=== PATIENT | male | born 1935 | race Caucasian/White ===

== ENCOUNTER 2016-09-19 08:00 | Outpatient (CLI) | payer MEDICARE | END 2016-09-19 08:01 | disposition home or self-care (01) | DX: E78.5 Hyperlipidemia, unspecified (principal); I10 Essential (primary) hypertension; E87.1 Hypo-osmolality and hyponatremia ==

== ENCOUNTER 2017-08-31 08:00 | Outpatient (CLI) | payer MEDICARE ==
[2017-08-31 13:28] LABS: BASOPHILS % (AUTO) 0.5 %; EOSINOPHILS # (AUTO) 0.1 10^3/uL (0.0-0.7); EOSINOPHILS % (AUTO) 2.1 %; HGB - HEMOGLOBIN 15.8 g/dL (14.0-18.0); LYMPHOCYTES # (AUTO) 3.1 10^3/uL (1.5-3.5); LYMPHOCYTES % (AUTO) 43.6 %; MEAN CORPUSCULAR HEMOGLOBIN 33.1 pg (27.0-31.0); MEAN CORPUSCULAR HGB CONC 33.6 g/dL (32.0-36.0); MEAN CORPUSCULAR VOLUME 98.4 fL (80.0-94.0); MONOCYTES # (AUTO) 0.6 10^3/uL (0.0-1.0); MONOCYTES % (AUTO) 9.1 %; NEUTROPHILS # (AUTO) 3.2 10^3/uL (1.5-6.6); NEUTROPHILS % (AUTO) 44.7 %; PLT - PLATELET COUNT 179 10^3/uL (130-450); RED BLOOD COUNT 4.78 10^6/uL (4.70-6.10); RED CELL DISTRIBUTION WIDTH 12.9 % (12.0-15.0); WHITE BLOOD COUNT 7.1 x10^3/uL (4.8-10.8)
[2017-08-31 13:30] LABS: ALBUMIN 4.2 g/dL (3.2-5.5); ALBUMIN/GLOBULIN RATIO 1.2 (1.0-2.2); ALKALINE PHOSPHATASE 69 IU/L (42-121); ALT ALANINE AMINOTRANSFERASE 16 IU/L (10-60); AST ASPARTATE AMINOTRANSFERASE 22 IU/L (10-42); BILIRUBIN,TOTAL 0.9 mg/dL (0.2-1.0); BUN - BLOOD UREA NITROGEN 19 mg/dL (6-20); CALCIUM 9.3 mg/dL (8.5-10.3); CARBON DIOXIDE - CO2 27 mmol/L (21-32); CHLORIDE 102 mmol/L (101-111); CHOL/HDL RATIO 4.8 (<5.0); CHOLESTEROL 233 mg/dL; CREATININE 0.7 mg/dL (0.6-1.2); GFR - MDRD 107 (>89); GLUCOSE 105 mg/dL (70-100); HDL CHOLESTEROL 49 mg/dL; LDL CHOLESTEROL,CALCULATED 149 mg/dL; SODIUM 135 mmol/L (135-145); TOTAL PROTEIN 7.8 g/dL (6.7-8.2); VLDL CHOLESTEROL 35 mg/dL
== END 2017-08-31 08:01 ==
LOC: LAB.WCP 08:00
PROVIDERS: ATTEND Family Medicine
DX: Z12.5 Encounter for screening for malignant neoplasm of prostate (principal); I10 Essential (primary) hypertension; E78.5 Hyperlipidemia, unspecified
CPT/HCPCS: 36415; 80053; 80061; 85025; G0103; 83721; 84153

== ENCOUNTER 2018-10-25 07:53 | Outpatient (CLI) | payer MEDICARE ==
[2018-10-25 15:54] LABS: BASOPHILS % (AUTO) 0.6 %; EOSINOPHILS # (AUTO) 0.3 10^3/uL (0.0-0.7); EOSINOPHILS % (AUTO) 3.9 %; HGB - HEMOGLOBIN 15.7 g/dL (14.0-18.0); LYMPHOCYTES # (AUTO) 3.3 10^3/uL (1.5-3.5); LYMPHOCYTES % (AUTO) 48.8 %; MEAN CORPUSCULAR HEMOGLOBIN 32.4 pg (27.0-31.0); MEAN CORPUSCULAR VOLUME 98.3 fL (80.0-94.0); MEAN PLATELET VOLUME 8.2 fL (7.4-11.4); MONOCYTES # (AUTO) 0.7 10^3/uL (0.0-1.0); MONOCYTES % (AUTO) 9.8 %; NEUTROPHILS # (AUTO) 2.5 10^3/uL (1.5-6.6); NEUTROPHILS % (AUTO) 36.9 %; PLT - PLATELET COUNT 184 10^3/uL (130-450); RED BLOOD COUNT 4.84 10^6/uL (4.70-6.10); RED CELL DISTRIBUTION WIDTH 13.1 % (12.0-15.0); WHITE BLOOD COUNT 6.7 x10^3/uL (4.8-10.8)
[2018-10-25 16:01] LABS: ALBUMIN 4.2 g/dL (3.2-5.5); ALBUMIN/GLOBULIN RATIO 1.1 (1.0-2.2); ALKALINE PHOSPHATASE 66 IU/L (42-121); ALT ALANINE AMINOTRANSFERASE 24 IU/L (10-60); AST ASPARTATE AMINOTRANSFERASE 23 IU/L (10-42); BILIRUBIN,TOTAL 0.9 mg/dL (0.2-1.0); BUN - BLOOD UREA NITROGEN 19 mg/dL (6-20); CALCIUM 9.1 mg/dL (8.5-10.3); CARBON DIOXIDE - CO2 26 mmol/L (21-32); CHLORIDE 102 mmol/L (101-111); CHOL/HDL RATIO 3.4 (<5.0); CHOLESTEROL 211 mg/dL; CREATININE 0.8 mg/dL (0.6-1.2); GFR - MDRD 92 (>89); GLUCOSE 106 mg/dL (70-100); HDL CHOLESTEROL 62 mg/dL; LDL CHOLESTEROL,CALCULATED 129 mg/dL; LDL/HDL RATIO 2.1 (<3.6); SODIUM 136 mmol/L (135-145); TOTAL PROTEIN 8.1 g/dL (6.7-8.2); VLDL CHOLESTEROL 20 mg/dL
== END 2018-10-25 07:54 | disposition home or self-care (01) ==
LOC: LAB.WCP 07:53
PROVIDERS: ATTEND Family Medicine
DX: E87.1 Hypo-osmolality and hyponatremia (principal); J44.9 Chronic obstructive pulmonary disease, unspecified; K21.9 Gastro-esophageal reflux disease without esophagitis; I10 Essential (primary) hypertension
CPT/HCPCS: 36415; 80053; 80061; 83721; 84443; 85025

== ENCOUNTER 2019-03-25 07:25 | Outpatient (CLI) | payer MEDICARE ==
[2019-03-25 12:53] LABS: BASOPHILS % (AUTO) 0.5 %; EOSINOPHILS # (AUTO) 0.1 10^3/uL (0.0-0.7); EOSINOPHILS % (AUTO) 1.9 %; HGB - HEMOGLOBIN 15.8 g/dL (14.0-18.0); LYMPHOCYTES # (AUTO) 3.3 10^3/uL (1.5-3.5); LYMPHOCYTES % (AUTO) 43.2 %; MEAN CORPUSCULAR HGB CONC 32.8 g/dL (32.0-36.0); MEAN CORPUSCULAR VOLUME 100.6 fL (80.0-94.0); MONOCYTES # (AUTO) 0.7 10^3/uL (0.0-1.0); NEUTROPHILS # (AUTO) 3.4 10^3/uL (1.5-6.6); NEUTROPHILS % (AUTO) 45.1 %; PLT - PLATELET COUNT 205 10^3/uL (130-450); RED BLOOD COUNT 4.79 10^6/uL (4.70-6.10); RED CELL DISTRIBUTION WIDTH 12.6 % (12.0-15.0); WHITE BLOOD COUNT 7.5 x10^3/uL (4.8-10.8)
[2019-03-25 13:17] LABS: ALBUMIN 4.1 g/dL (3.2-5.5); ALBUMIN/GLOBULIN RATIO 1.1 (1.0-2.2); BILIRUBIN,TOTAL 1.2 mg/dL (0.2-1.0); CALCIUM 9.5 mg/dL (8.5-10.3); CREATININE 0.8 mg/dL (0.6-1.2)
== END 2019-03-25 23:59 | disposition home or self-care (01) ==
LOC: LAB.WCP 07:25
PROVIDERS: ATTEND Family Medicine
DX: I10 Essential (primary) hypertension (principal); K21.9 Gastro-esophageal reflux disease without esophagitis
CPT/HCPCS: 36415; 80053; 85025

== ENCOUNTER 2019-11-02 11:25 | Outpatient (CLI) | payer MEDICARE ==
[2019-11-02 18:47] LABS: BASOPHILS # (AUTO) 0.1 10^3/uL (0.0-0.1); BASOPHILS % (AUTO) 0.6 %; EOSINOPHILS # (AUTO) 0.1 10^3/uL (0.0-0.7); EOSINOPHILS % (AUTO) 1.7 %; LYMPHOCYTES # (AUTO) 3.2 10^3/uL (1.5-3.5); MEAN CORPUSCULAR HEMOGLOBIN 32.9 pg (27.0-31.0); MEAN CORPUSCULAR HGB CONC 32.9 g/dL (32.0-36.0); MEAN CORPUSCULAR VOLUME 100.2 fL (80.0-94.0); MEAN PLATELET VOLUME 10.6 fL (7.4-11.4); MONOCYTES # (AUTO) 0.7 10^3/uL (0.0-1.0); MONOCYTES % (AUTO) 8.5 %; NEUTROPHILS # (AUTO) 4.1 10^3/uL (1.5-6.6); PLT - PLATELET COUNT 174 10^3/uL (130-450); RED BLOOD COUNT 4.86 10^6/uL (4.70-6.10); RED CELL DISTRIBUTION WIDTH 12.6 % (12.0-15.0); WHITE BLOOD COUNT 8.2 x10^3/uL (4.8-10.8)
[2019-11-02 19:01] LABS: ALBUMIN 4.3 g/dL (3.2-5.5); ALBUMIN/GLOBULIN RATIO 1.2 (1.0-2.2); ALKALINE PHOSPHATASE 69 IU/L (42-121); ALT ALANINE AMINOTRANSFERASE 22 IU/L (10-60); AST ASPARTATE AMINOTRANSFERASE 24 IU/L (10-42); BILIRUBIN,TOTAL 1.2 mg/dL (0.2-1.0); BUN - BLOOD UREA NITROGEN 25 mg/dL (6-20); CALCIUM 9.1 mg/dL (8.5-10.3); CARBON DIOXIDE - CO2 27 mmol/L (21-32); CHLORIDE 102 mmol/L (101-111); CHOL/HDL RATIO 3.4 (<5.0); CHOLESTEROL 227 mg/dL; CREATININE 0.8 mg/dL (0.6-1.2); GLUCOSE 92 mg/dL (70-100); HDL CHOLESTEROL 66 mg/dL; LDL CHOLESTEROL,CALCULATED 123 mg/dL; LDL/HDL RATIO 1.9 (<3.6); SODIUM 135 mmol/L (135-145); TOTAL PROTEIN 7.9 g/dL (6.7-8.2); VLDL CHOLESTEROL 38 mg/dL
== END 2019-11-02 23:59 | disposition home or self-care (01) ==
LOC: LAB.WCP 11:25
PROVIDERS: ATTEND Nurse Practitioner
DX: I10 Essential (primary) hypertension (principal); E78.5 Hyperlipidemia, unspecified
CPT/HCPCS: 36415; 80053; 80061; 83721; 84443; 85025

== ENCOUNTER 2020-02-17 07:52 | Emergency (ER) | payer MEDICARE ==
--- NOTE | 2020-02-17 08:21 | ED Physician Documentation ---
PD HPI ABD PAIN - Stated complaint Stated Complaint: ABD PAIN - Chief complaint Chief Complaint: Abd Pain - History obtained from History obtained from: Patient, Family - History of Present Illness Timing - onset: Enter time (0100), Last night Timing - duration: Hours Timing - details: Gradual onset, Still present Quality: Cramping, Sharp, Pain Location: Suprapubic Radiation: Lower back Improved by: Laying still Worsened by: Position, Palpation Associated symptoms: Nausea. No: Fever Similar symptoms before: Has not had sx before Recently seen: Not recently seen - Additional information Additional information: Previously well 84-year-old male presents to the emergency department this morning with lower abdominal pain. He states that last night when he went to bed he had a little bit of pain in this morning there is pain in the suprapubic area that is worsening and worsening. He recalls going to the bathroom did not have a problem voiding only voided a small amount. He denies any recent issue with voiding or decreased stream. He did have some slight nausea he has not had any nausea or vomiting and he has no other area of abdominal pain. He had stroganoff for dinner last night and drinks one glass of wine per day. Review of Systems Constitutional: denies: Fever Eyes: denies: Decreased vision Ears: denies: Ear pain Nose: denies: Congestion Throat: denies: Sore throat Cardiac: denies: Chest pain / pressure, Palpitations Respiratory: reports: Dyspnea. denies: Cough GI: reports: Abdominal Pain, Nausea, Constipation (one day). denies: Vomiting, Diarrhea : denies: Dysuria, Frequency Skin: denies: Rash Musculoskeletal: reports: Back pain. denies: Neck pain, Extremity pain Neurologic: denies: Generalized weakness, Focal weakness, Numbness PD PAST MEDICAL HISTORY - Past Medical History Cardiovascular: Hypertension Respiratory: COPD Endocrine/Autoimmune: None GI: GERD, Ulcers, Colon polyps, Hepatitis : Benign prostate hypertrophy HEENT: Chronic hearing loss Psych: None Musculoskeletal: Osteoarthritis - Past Surgical History General: EGD, Colonoscopy HEENT: Cataracts - Present Medications Home Medications: Ambulatory Orders Medication Instructions Recorded Confirmed Aspirin 81 mg PO 01/21/13 01/21/13 Beclomethasone 80 Mcg [Qvar 80] 01/21/13 01/21/13 Multivitamin [Multivitamins] 1 each PO 01/21/13 01/21/13 [place]-3 Fatty Acids [Fish Oil] 500 mg PO 01/21/13 01/21/13 Vit C/Jayce AC/Lut/Copper/Znox 1 each PO 01/21/13 01/21/13 [Preservision Softgel] atenoloL [Tenormin] 50 mg PO DAILY 01/21/13 01/21/13 Hydrochlorothiazide 25 mg PO 01/24/13 01/24/13 Losartan [Cozaar] 100 mg PO DAILY 01/24/13 01/24/13 Amlodipine Besylate 5 DAILY 02/17/20 Metoprolol Tartrate 50 02/17/20 02/17/20 Tamsulosin [Flomax] 0.4 mg PO DAILY #20 capsule 02/17/20 - Allergies Allergies/Adverse Reactions: Allergies Allergy/AdvReac Type Severity Reaction Status Date / Time No Known Drug Allergies Allergy Verified 02/17/20 08:01 PD ED PE NORMAL - Vitals Vital signs reviewed: Yes (hypertensive ) - General General: Alert and oriented X 3, No acute distress, Well developed/nourished - HEENT HEENT: Atraumatic, PERRL, EOMI - Neck Neck: Supple, no meningeal sign, No bony TTP - Cardiac Cardiac: RRR, No murmur - Respiratory Respiratory: No respiratory distress, Clear bilaterally - Abdomen Abdomen: Normal bowel sounds, Soft, Other (mild distention soft with suprapubic tenderness without firmness and without garding. 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, No motor deficit, No sensory deficit, Normal speech Eye Opening: Spontaneous Motor: Obeys Commands Verbal: Oriented GCS Score: 15 - Psych Psych: Normal mood, Normal affect Results - Vitals Vitals: Vital Signs - 24 hr 02/17/20 02/17/20 02/17/20 07:57 08:30 10:30 Temperature 36.5 C 36.7 C 36.7 C Heart Rate 88 78 91 Respiratory 16 20 18 Rate Blood Pressure 149/69 H 159/86 H 143/88 H O2 Saturation 96 98 95 02/17/20 12:09 Temperature 99.0 C H Heart Rate 106 H Respiratory 20 Rate Blood Pressure 148/92 H O2 Saturation 94 Oxygen O2 Source Room air - EKG (time done) 0810 Rate: Rate (enter#) (79) Rhythm: LAE, Other (ventriclur trigeminy) Intervals: Prolonged [place] (dramatic ), RBBB Compare to prior EKG: Old EKG unavailable Computer interpretation: Agree with computer - Labs Labs: Laboratory Tests 02/17/20 02/17/20 02/17/20 08:25 08:25 10:20 WBC 10.1 RBC 5.03 Hgb 16.5 Hct 48.9 MCV 97.2 H MCH 32.8 H MCHC 33.7 RDW 12.3 Plt Count 186 MPV 9.7 Neut # (Auto) 8.4 H Lymph # (Auto) 1.2 L Sawyer # (Auto) 0.4 Eos # (Auto) 0.0 Baso # (Auto) 0.1 Absolute Nucleated RBC 0.00 Nucleated RBC % 0.0 Sodium 134 L Potassium 4.2 Chloride 97 L Carbon Dioxide 26 Anion Gap 11.0 BUN 20 Creatinine 0.9 Estimated GFR (MDRD) 80 L Glucose 149 H Calcium 9.6 Total Bilirubin 2.0 H AST 132 H ALT 92 H Alkaline Phosphatase 117 Total Protein 8.8 H Albumin 4.7 Globulin 4.1 Albumin/Globulin Ratio 1.1 Lipase 2981 H Urine Color YELLOW Urine Clarity CLEAR Urine pH 7.0 Ur Specific [place] 1.015 Urine Protein TRACE Urine Glucose (UA) NEGATIVE Urine Ketones NEGATIVE Urine Occult Blood NEGATIVE Urine Nitrite NEGATIVE Urine Bilirubin NEGATIVE Urine Urobilinogen 2 H Ur Leukocyte Esterase NEGATIVE Ur Microscopic Review NOT INDICATED Urine Culture Comments NOT INDICATED - Rads (name of study) CT ab/pel w Radiology: Prelim report reviewed (Impression: 1. Peripancreatic fat stranding adjacent to the head and uncinate process of pancreas. No. Pancreatic fluid collection is noted. Suggest correlate with clinical correlation for possible pancreatitis. 2. wall thickening in adjacent mid to distal portion of duodenum and proximal ), Final report received (Jejunum which may represent reactive inflammatory changes. Enteritis cannot be entirely excluded. 3 No other evidence no other area of abnormal bowel wall thickening. No free fluid or free air. Colonic diverticulosis without evidence of acute diverticulitis.), EMP read indepedently, See rad report (Markedly distended urinary bladder. Enlarged prostate gland with mass-effect on floor of urinary bladder. No discrete bladder wall mass or significant wall thickening. 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 PD MEDICAL DECISION MAKING - ED course Complexity details: reviewed old records, reviewed results, re-evaluated patient, considered differential, d/w patient, d/w family ED course: 84-year-old male presents to the emergency department with 1 day history of lower abdominal pain and is found to have an over distended bladder. A CT scan done in part of the work-up demonstrates what appears to be acute pancreatitis. The patient does not have symptoms consistent with acute pancreatitis. He does have a markedly elevated lipase mildly elevated bilirubin. The patient has resolution of his symptoms that he came in for with the placement of Justin catheter. About 800 mL's of urine are drained from the Justin. I suspect this is the reason the patient came to the emergency department this morning was acute urinary retention. He does have elevation in the lipase and evidence of inflammation around the pancreas on his CT scan and he does not have pain and nausea associated with this that would be consistent with pancreatitis. Here in the emergency department the patient has no symptoms and he is fed as a trial. Departure - Departure Disposition: 01 Home, Self Care Clinical Impression: Urinary retention, Serum lipase elevation Condition: Stable Instructions: ED Catheter Care Justin, ED Retention Urinary Male Follow-Up: Ron Castaneda DO [Primary Care Provider] - Brenden Bowen MD [Provider Admit Priv/Credential] - Prescriptions: Tamsulosin [Flomax] 0.4 mg PO DAILY #20 capsule Comments: Today we found that your bladder was markedly distended and this is likely due to a problem with your prostate and a follow-up with urologist is imperative. The catheter will need to be left in place for 7-10days. Start the Tamsulosin (flowmax) to improve the prostate opening. In addition today there was an elevation in an enzyme called lipase. This usually indicates a condition called pancreatitis. Pancreatitis usually results in abdominal pain just below your chest and nausea and vomiting. If you begin to develop these symptoms return to the hospital you will likely need to be admitted for bowel rest. The recommendation is to reduce her alcohol consumption, stop the losartin and follow-up with Dr. Castaneda for recheck of your lipase at the beginning of next week.
[2020-02-17] MEDS ORDERED: IOVERSOL 320 100 ML VIAL IVP ONE ×2 (08:33→10:41)
[2020-02-17 08:42] LABS: BASOPHILS # (AUTO) 0.1 10^3/uL (0.0-0.1); BASOPHILS % (AUTO) 0.5 %; EOSINOPHILS % (AUTO) 0.3 %; HGB - HEMOGLOBIN 16.5 g/dL (14.0-18.0); LYMPHOCYTES # (AUTO) 1.2 10^3/uL (1.5-3.5); LYMPHOCYTES % (AUTO) 11.8 %; MEAN CORPUSCULAR HEMOGLOBIN 32.8 pg (27.0-31.0); MEAN CORPUSCULAR HGB CONC 33.7 g/dL (32.0-36.0); MEAN CORPUSCULAR VOLUME 97.2 fL (80.0-94.0); MEAN PLATELET VOLUME 9.7 fL (7.4-11.4); MONOCYTES # (AUTO) 0.4 10^3/uL (0.0-1.0); MONOCYTES % (AUTO) 3.8 %; NEUTROPHILS # (AUTO) 8.4 10^3/uL (1.5-6.6); NEUTROPHILS % (AUTO) 83.2 %; PLT - PLATELET COUNT 186 10^3/uL (130-450); RED BLOOD COUNT 5.03 10^6/uL (4.70-6.10); RED CELL DISTRIBUTION WIDTH 12.3 % (12.0-15.0); WHITE BLOOD COUNT 10.1 x10^3/uL (4.8-10.8)
[2020-02-17 09:34] LABS: ALBUMIN 4.7 g/dL (3.2-5.5); ALBUMIN/GLOBULIN RATIO 1.1 (1.0-2.2); CALCIUM 9.6 mg/dL (8.5-10.3); CREATININE 0.9 mg/dL (0.6-1.2); TOTAL PROTEIN 8.8 g/dL (6.7-8.2)
[2020-02-17 10:38] LABS: BILIRUBIN,URINE NEGATIVE (NEGATIVE); GLUCOSE, URINE (UA) NEGATIVE (NEGATIVE); KETONES,URINE (UA) NEGATIVE (NEGATIVE); LEUKOCYTE ESTERASE, URINE NEGATIVE (NEGATIVE); NITRITE,URINE NEGATIVE (NEGATIVE); OCCULT BLOOD,URINE NEGATIVE (NEGATIVE); PROTEIN,URINE TRACE mg/dL (NEGATIVE); UROBILINOGEN,URINE 2 E.U./dL (NORMAL)
--- NOTE | 2020-02-17 10:40 | CT Report ---
PROCEDURE: Abdomen/Pelvis W INDICATIONS: lower abdominal pain CONTRAST: IV CONTRAST: Optiray 320 ml: 100 PO CONTRAST: *NO PO CONTRAST TECHNIQUE: After the administration of IV contrast, 5 mm thick sections acquired from the diaphragms to the symp hysis. 5 mm thick coronal and sagittal reformats were acquired. For radiation dose reduction, the f ollowing was used: automated exposure control, adjustment of mA and/or kV according to patient size. COMPARISON: None. FINDINGS: Image quality: Excellent. ABDOMEN: Lung bases: Bibasilar scattered scarring/atelectasis is seen. Heart size is enlarged, no pericardial effusion. Moderate size hiatal hernia is seen. Solid organs: Liver and spleen are normal in size and enhancement. 7 mm hypodensity is again seen in anterior aspect of right hepatic dome not significantly changed from 2015 study. Gallbladder is dist ended and shows no gross abnormality. Biliary system is non dilated. There is suggestion of signific ant fat stranding adjacent to the pancreatic head and uncinate process. No peripancreatic fluid colle ction. Body and tail of pancreas enhances normally., No adrenal nodules. Kidneys demonstrate normal size and enhancement, without hydronephrosis. Bilateral renal cysts are again seen, unchanged from 2 015 study. Peritoneum and bowel: There is no evidence of bowel obstruction. Suggestion of wall thickening involv ing mid to distal portion of duodenum and proximal jejunum adjacent to the pancreas is seen. No other area of abnormal bowel wall thickening. No free fluid or free air. Colonic diverticulosis is seen, n o CT evidence of acute diverticulitis. Nodes and vessels: No retroperitoneal or mesenteric adenopathy by size criteria. Extensive atheroscl erotic disease throughout the abdominal aorta is seen. Focal aneurysmal dilatation of infrarenal abdo gus aorta is seen measures up to 2.5 cm in largest AP diameter. Miscellaneous: No ventral hernias. PELVIS: Genitourinary: Bladder wall thickness is normal. Urinary bladder is markedly distended. Enlarged pr ostate gland is noted with mild mass effect on floor of urinary bladder. No discrete bladder wall mas s is. Miscellaneous: No inguinal hernias or adenopathy. Bones: No suspicious bony lesions. No vertebral body compression fractures. Leftward scoliosis of lumbar spine centered at L3 level is seen. Degenerative disc disease throughout cervical spine is not ed. IMPRESSION: 1. Peripancreatic fat stranding adjacent to the head and uncinate process of pancreas. No peripancrea tic fluid collection is noted. Suggest clinical correlation for possible pancreatitis. 2. Wall thickening in adjacent mid to distal portion of duodenum and proximal jejunum which may repre sent reactive inflammatory changes. Enteritis cannot be entirely excluded. 3. No other area of abnormal bowel wall thickening. No free fluid or free air. Colonic diverticulosis without evidence of acute diverticulitis. 4. Markedly distended urinary bladder. Enlarged prostate gland with mass effect on floor of urinary b ladder. No discrete bladder wall mass or significant wall thickening. 5. 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 Reviewed by: Evelio Rodriguez MD on 02/17/2020 10:38 AM PDT Approved by: Evelio Rodriguez MD on 02/17/2020 10:38 AM PDT Station ID: [id number]
[2020-02-17 10:52] LABS: CLARITY,URINE CLEAR (CLEAR)
[2020-02-17 12:58] VITALS: BP 154/93
== END 2020-02-17 13:00 | disposition home or self-care (01) ==
LOC: ED 07:52
DX: N40.1 Benign prostatic hyperplasia with lower urinary tract symptoms (principal); R33.8 Other retention of urine; R74.8 Abnormal levels of other serum enzymes
CPT/HCPCS: 36415; 51702; 51798; 74177; 80053; 81003; 83690; 85025; 93005; 99284; Q9967; 81001; 87086

== ENCOUNTER → 2020-02-17 | Outpatient (CLI) | payer MEDICARE | END | disposition EMS.NT | LOC: EMS 07:04 | PROVIDERS: ATTEND Surgery | DX: R10.10 Upper abdominal pain, unspecified (principal) ==

== ENCOUNTER 2020-02-24 08:00 | Outpatient (CLI) | payer MEDICARE ==
[2020-02-24 11:24] LABS: BASOPHILS % (AUTO) 0.5 %; EOSINOPHILS # (AUTO) 0.1 10^3/uL (0.0-0.7); EOSINOPHILS % (AUTO) 1.3 %; HGB - HEMOGLOBIN 14.1 g/dL (14.0-18.0); LYMPHOCYTES # (AUTO) 1.9 10^3/uL (1.5-3.5); LYMPHOCYTES % (AUTO) 22.2 %; MEAN CORPUSCULAR HEMOGLOBIN 32.8 pg (27.0-31.0); MEAN CORPUSCULAR HGB CONC 33.6 g/dL (32.0-36.0); MEAN CORPUSCULAR VOLUME 97.7 fL (80.0-94.0); MEAN PLATELET VOLUME 9.4 fL (7.4-11.4); MONOCYTES % (AUTO) 11.2 %; NEUTROPHILS # (AUTO) 5.6 10^3/uL (1.5-6.6); NEUTROPHILS % (AUTO) 64.2 %; PLT - PLATELET COUNT 262 10^3/uL (130-450); RED CELL DISTRIBUTION WIDTH 11.9 % (12.0-15.0); WHITE BLOOD COUNT 8.7 x10^3/uL (4.8-10.8)
[2020-02-24 12:31] LABS: ALBUMIN 3.5 g/dL (3.2-5.5); ALBUMIN/GLOBULIN RATIO 0.9 (1.0-2.2); BILIRUBIN,TOTAL 0.6 mg/dL (0.2-1.0); CREATININE 0.7 mg/dL (0.6-1.2); TOTAL PROTEIN 7.4 g/dL (6.7-8.2)
== END 2020-02-24 23:59 | disposition home or self-care (01) ==
LOC: LAB.WCP 08:00
PROVIDERS: ATTEND Family Medicine
DX: R74.8 Abnormal levels of other serum enzymes (principal)
CPT/HCPCS: 36415; 80053; 82150; 83690; 85025

== ENCOUNTER 2020-06-26 08:00 | Outpatient (CLI) | payer MEDICARE ==
[2020-06-26 17:52] LABS: BASOPHILS # (AUTO) 0.1 10^3/uL (0.0-0.1); BASOPHILS % (AUTO) 0.6 %; EOSINOPHILS # (AUTO) 0.2 10^3/uL (0.0-0.7); EOSINOPHILS % (AUTO) 1.5 %; HGB - HEMOGLOBIN 14.1 g/dL (14.0-18.0); LYMPHOCYTES # (AUTO) 2.4 10^3/uL (1.5-3.5); LYMPHOCYTES % (AUTO) 23.4 %; MEAN CORPUSCULAR HEMOGLOBIN 31.3 pg (27.0-31.0); MEAN CORPUSCULAR HGB CONC 31.8 g/dL (32.0-36.0); MEAN CORPUSCULAR VOLUME 98.2 fL (80.0-94.0); MEAN PLATELET VOLUME 10.4 fL (7.4-11.4); MONOCYTES # (AUTO) 0.9 10^3/uL (0.0-1.0); MONOCYTES % (AUTO) 8.2 %; NEUTROPHILS # (AUTO) 6.8 10^3/uL (1.5-6.6); NEUTROPHILS % (AUTO) 65.5 %; PLT - PLATELET COUNT 255 10^3/uL (130-450); RED BLOOD COUNT 4.51 10^6/uL (4.70-6.10); RED CELL DISTRIBUTION WIDTH 13.1 % (12.0-15.0); WHITE BLOOD COUNT 10.4 x10^3/uL (4.8-10.8)
[2020-06-26 18:11] LABS: ALBUMIN 3.8 g/dL (3.2-5.5); BILIRUBIN,TOTAL 0.6 mg/dL (0.2-1.0); CALCIUM 9.3 mg/dL (8.5-10.3); CREATININE 0.8 mg/dL (0.6-1.2); TOTAL PROTEIN 7.8 g/dL (6.7-8.2)
== END 2020-06-26 23:59 | disposition home or self-care (01) ==
LOC: LAB.WCP 08:00
PROVIDERS: ATTEND Family Medicine
DX: A41.51 Sepsis due to Escherichia coli [E. coli] (principal)
CPT/HCPCS: 36415; 80053; 85025

== ENCOUNTER 2020-09-21 08:00 | Outpatient (CLI) | payer MEDICARE ==
[2020-09-21 11:48] LABS: BASOPHILS # (AUTO) 0.1 10^3/uL (0.0-0.1); BASOPHILS % (AUTO) 0.8 %; EOSINOPHILS # (AUTO) 0.3 10^3/uL (0.0-0.7); EOSINOPHILS % (AUTO) 3.6 %; HCT - HEMATOCRIT 46.5 % (42.0-52.0); HGB - HEMOGLOBIN 14.9 g/dL (14.0-18.0); LYMPHOCYTES # (AUTO) 3.2 10^3/uL (1.5-3.5); MEAN CORPUSCULAR HEMOGLOBIN 31.5 pg (27.0-31.0); MEAN CORPUSCULAR VOLUME 98.3 fL (80.0-94.0); MEAN PLATELET VOLUME 9.6 fL (7.4-11.4); MONOCYTES # (AUTO) 0.7 10^3/uL (0.0-1.0); MONOCYTES % (AUTO) 9.3 %; NEUTROPHILS # (AUTO) 2.9 10^3/uL (1.5-6.6); PLT - PLATELET COUNT 209 10^3/uL (130-450); RED BLOOD COUNT 4.73 10^6/uL (4.70-6.10); RED CELL DISTRIBUTION WIDTH 13.3 % (12.0-15.0); WHITE BLOOD COUNT 7.2 x10^3/uL (4.8-10.8)
[2020-09-21 12:05] LABS: ALBUMIN 4.2 g/dL (3.2-5.5); ALBUMIN/GLOBULIN RATIO 1.1 (1.0-2.2); ALKALINE PHOSPHATASE 72 IU/L (42-121); ALT ALANINE AMINOTRANSFERASE 23 IU/L (10-60); AST ASPARTATE AMINOTRANSFERASE 21 IU/L (10-42); BILIRUBIN,TOTAL 1.1 mg/dL (0.2-1.0); BUN - BLOOD UREA NITROGEN 23 mg/dL (6-20); CALCIUM 9.4 mg/dL (8.5-10.3); CARBON DIOXIDE - CO2 28 mmol/L (21-32); CHLORIDE 101 mmol/L (101-111); CHOL/HDL RATIO 3.5 (<5.0); CHOLESTEROL 221 mg/dL; CREATININE 0.9 mg/dL (0.6-1.2); GFR - MDRD 80 (>89); GLUCOSE 104 mg/dL (70-100); HDL CHOLESTEROL 64 mg/dL; LDL CHOLESTEROL,CALCULATED 123 mg/dL; LDL/HDL RATIO 1.9 (<3.6); POTASSIUM 4.3 mmol/L (3.5-5.0); SODIUM 136 mmol/L (135-145); TRIGLYCERIDES 171 mg/dL; VLDL CHOLESTEROL 34 mg/dL
[2020-09-22 11:16] LABS: HEPATITIS C ANTIBODY REACTIVE (NON-REACTIVE)
[2020-09-25 20:25] LABS: HCV RNA QNT <1.18 NOT DETECTED Log IU/mL (NOT DETECTED); HCV RNA QUANT RT PCR <15 NOT DETECTED IU/mL (NOT DETECTED)
== END 2020-09-21 23:59 | disposition home or self-care (01) ==
LOC: LAB.WCP 08:00
PROVIDERS: ATTEND Family Medicine
DX: I10 Essential (primary) hypertension (principal); E78.5 Hyperlipidemia, unspecified; B19.20 Unspecified viral hepatitis C without hepatic coma
CPT/HCPCS: 36415; 80053; 80061; 83721; 85025; 86803; 87902

== ENCOUNTER 2021-03-22 08:00 | Outpatient (CLI) | payer MEDICARE ==
[2021-03-22 12:46] LABS: BASOPHILS # (AUTO) 0.1 10^3/uL (0.0-0.1); BASOPHILS % (AUTO) 0.9 %; EOSINOPHILS # (AUTO) 0.5 10^3/uL (0.0-0.7); EOSINOPHILS % (AUTO) 5.2 %; HCT - HEMATOCRIT 47.3 % (42.0-52.0); HGB - HEMOGLOBIN 15.7 g/dL (14.0-18.0); LYMPHOCYTES # (AUTO) 3.7 10^3/uL (1.5-3.5); LYMPHOCYTES % (AUTO) 40.2 %; MEAN CORPUSCULAR HEMOGLOBIN 33.1 pg (27.0-31.0); MEAN CORPUSCULAR HGB CONC 33.2 g/dL (32.0-36.0); MEAN CORPUSCULAR VOLUME 99.8 fL (80.0-94.0); MEAN PLATELET VOLUME 9.7 fL (7.4-11.4); MONOCYTES # (AUTO) 0.7 10^3/uL (0.0-1.0); MONOCYTES % (AUTO) 7.5 %; NEUTROPHILS # (AUTO) 4.2 10^3/uL (1.5-6.6); NEUTROPHILS % (AUTO) 45.9 %; PLT - PLATELET COUNT 230 10^3/uL (130-450); RED BLOOD COUNT 4.74 10^6/uL (4.70-6.10); RED CELL DISTRIBUTION WIDTH 12.6 % (12.0-15.0); WHITE BLOOD COUNT 9.2 x10^3/uL (4.8-10.8)
[2021-03-22 13:02] LABS: ALBUMIN 4.4 g/dL (3.2-5.5); ALBUMIN/GLOBULIN RATIO 1.2 (1.0-2.2); ALKALINE PHOSPHATASE 71 IU/L (42-121); ALT ALANINE AMINOTRANSFERASE 21 IU/L (10-60); AST ASPARTATE AMINOTRANSFERASE 21 IU/L (10-42); BILIRUBIN,TOTAL 0.8 mg/dL (0.2-1.0); BUN - BLOOD UREA NITROGEN 18 mg/dL (6-20); CALCIUM 9.6 mg/dL (8.5-10.3); CARBON DIOXIDE - CO2 28 mmol/L (21-32); CHLORIDE 98 mmol/L (101-111); CHOL/HDL RATIO 2.8 (<5.0); CHOLESTEROL 199 mg/dL; CREATININE 0.7 mg/dL (0.6-1.2); GFR - MDRD 107 (>89); GLUCOSE 104 mg/dL (70-100); HDL CHOLESTEROL 72 mg/dL; LDL CHOLESTEROL,CALCULATED 99 mg/dL; LDL/HDL RATIO 1.4 (<3.6); POTASSIUM 4.5 mmol/L (3.5-5.0); SODIUM 134 mmol/L (135-145); TOTAL PROTEIN 8.1 g/dL (6.7-8.2); TRIGLYCERIDES 141 mg/dL; VLDL CHOLESTEROL 28 mg/dL
== END 2021-03-22 23:59 | disposition home or self-care (01) ==
LOC: LAB.WCP 08:00
PROVIDERS: ATTEND Family Medicine
DX: I10 Essential (primary) hypertension (principal); B19.20 Unspecified viral hepatitis C without hepatic coma
CPT/HCPCS: 36415; 80053; 80061; 83721; 85025; 87522

== ENCOUNTER 2021-05-27 08:00 | Outpatient (CLI) | payer MEDICARE ==
[2021-05-27 18:17] LABS: HCT - HEMATOCRIT 46.1 % (42.0-52.0); HGB - HEMOGLOBIN 15.3 g/dL (14.0-18.0); MEAN CORPUSCULAR HGB CONC 33.2 g/dL (32.0-36.0); MEAN CORPUSCULAR VOLUME 99.4 fL (80.0-94.0); MEAN PLATELET VOLUME 9.9 fL (7.4-11.4); RED BLOOD COUNT 4.64 10^6/uL (4.70-6.10); RED CELL DISTRIBUTION WIDTH 12.6 % (12.0-15.0); WHITE BLOOD COUNT 10.5 x10^3/uL (4.8-10.8)
[2021-05-27 18:25] LABS: CALCIUM 9.3 mg/dL (8.5-10.3); CREATININE 0.8 mg/dL (0.6-1.2); POTASSIUM 4.4 mmol/L (3.5-5.0)
== END 2021-05-27 23:59 ==
LOC: LAB.WCP 08:00
PROVIDERS: ATTEND Family Medicine
DX: R06.02 Shortness of breath (principal); Z20.822 Contact with and (suspected) exposure to COVID-19
CPT/HCPCS: 36415; 80048; 83880; 85027

== ENCOUNTER 2021-05-27 11:28 | Outpatient (CLI) | payer MEDICARE ==
--- NOTE | 2021-05-27 12:08 | XRAY Report ---
PROCEDURE: Chest 2 View X-Ray INDICATIONS: SHORTNESS OF BREATH TECHNIQUE: 2 view(s) of the chest. COMPARISON: April 18, 2010 FINDINGS: SUPPORT DEVICES: None. LUNGS/PLEURA: Bibasilar streaky densities, likely reflecting scar/atelectasis. Coarsened interstitial markings. No pleural effusion or pneumothorax. MEDIASTINUM: The cardiac silhouette is within normal limits. Retrocardiac lucency, compatible hiatal hernia. BONES/SOFT TISSUES: No acute abnormality. Redemonstrated interposed colon underneath the right diaphr agm. IMPRESSION: 1.No significant interval change. Reviewed by: Samir Juarez MD on 05/27/2021 12:07 PM [facility] Approved by: Samir Juarez MD on 05/27/2021 12:07 PM [facility] Station ID: [id number]
== END 2021-05-27 11:29 | disposition home or self-care (01) ==
LOC: DI.N 11:28
PROVIDERS: ATTEND Family Medicine
DX: R06.02 Shortness of breath (principal); Z20.822 Contact with and (suspected) exposure to COVID-19
CPT/HCPCS: 36415; 71046; 80048; 83880; 85027; U0004

== ENCOUNTER 2022-03-24 17:21 | Inpatient (IN) | payer MEDICARE ==
[2022-03-24 19:15] LABS: BASOPHILS % (AUTO) 0.2 %; EOSINOPHILS % (AUTO) 0.2 %; HCT - HEMATOCRIT 30.4 % (42.0-52.0); HGB - HEMOGLOBIN 9.9 g/dL (14.0-18.0); LYMPHOCYTES # (AUTO) 2.5 10^3/uL (1.5-3.5); LYMPHOCYTES % (AUTO) 19.2 %; MEAN CORPUSCULAR HEMOGLOBIN 32.9 pg (27.0-31.0); MEAN CORPUSCULAR HGB CONC 32.6 g/dL (32.0-36.0); MEAN PLATELET VOLUME 9.1 fL (7.4-11.4); MONOCYTES # (AUTO) 0.7 10^3/uL (0.0-1.0); MONOCYTES % (AUTO) 5.3 %; NEUTROPHILS # (AUTO) 9.9 10^3/uL (1.5-6.6); NEUTROPHILS % (AUTO) 74.7 %; PLT - PLATELET COUNT 202 10^3/uL (130-450); RED BLOOD COUNT 3.01 10^6/uL (4.70-6.10); RED CELL DISTRIBUTION WIDTH 13.1 % (12.0-15.0); WHITE BLOOD COUNT 13.2 x10^3/uL (4.8-10.8)
[2022-03-24 19:30] LABS: ALBUMIN 3.3 g/dL (3.2-5.5); ALBUMIN/GLOBULIN RATIO 1.3 (1.0-2.2); BILIRUBIN,TOTAL 0.5 mg/dL (0.2-1.0); CALCIUM 8.4 mg/dL (8.5-10.3); CREATININE 0.8 mg/dL (0.6-1.2); POTASSIUM 5.2 mmol/L (3.5-5.0); TOTAL PROTEIN 5.8 g/dL (6.7-8.2)
--- NOTE | 2022-03-24 19:46 | XRAY Report ---
PROCEDURE: Chest 1 View X-Ray INDICATIONS: Chest Pain TECHNIQUE: One view of the chest was acquired. COMPARISON: CXR 05/27/2021. Lung bases on CT 02/17/2020 FINDINGS: Surgical changes and devices: None. Lungs and pleura: No pleural effusions or pneumothorax. Lungs are clear. Mediastinum: Mediastinal contours appear unchanged. Hiatal hernia. Heart size is normal. Bones and chest wall: No suspicious bony lesions. Overlying soft tissues appear unremarkable. IMPRESSION: No acute cardiopulmonary abnormality. Hiatal hernia. Reviewed by: Reese Tolbert MD on 03/24/2022 7:45 PM PST Approved by: Reese Tolbert MD on 03/24/2022 7:45 PM PST Station ID: [id number]
[2022-03-24] MEDS ORDERED: SODIUM CHLORIDE 0.9% 500 ML IV STA (22:10)
[2022-03-24] MEDS ORDERED: PANTOPRAZOLE 40 MG VIAL IVP STA (22:10)
[2022-03-24 22:13] LABS: FECAL OCCULT BLOOD (FIT) POSITIVE (NEGATIVE)
--- NOTE | 2022-03-24 22:13 | ED Physician Documentation ---
PD HPI GI BLEED - Stated complaint Stated Complaint: SOA - Chief complaint Chief Complaint: Resp - History obtained from History obtained from: Patient, Family - History of Present Illness Timing - onset: Today Timing - duration: Hours Timing - details: Abrupt onset, Still present Associated symptoms: Black/tarry stool, Near syncope / syncope, Other (dyspena) Contributing factors: Alcohol use, NSAID use Improved by: Laying still Worsened by: Other (exertion) Similar symptoms before: Diagnosis (bleeding ulcer in 1988) Recently seen: Not recently seen - Additional information Additional information: 86-year-old Larry Campa has a history of hypertension COPD and BPH and has previously had a history of duodenal ulcer with bleeding. Today he noted dark black stool this afternoon and significant dyspnea associated with any exertion. He is not used to having this at all. He does indicate that he drinks wine regularly and he also takes both Aleve and ibuprofen periodically and recently. Review of Systems Constitutional: denies: Fever Eyes: denies: Decreased vision Ears: denies: Ear pain Nose: denies: Congestion Throat: denies: Sore throat Cardiac: denies: Chest pain / pressure, Palpitations Respiratory: reports: Dyspnea. denies: Cough, Wheezing GI: reports: Bloody / black stool. denies: Abdominal Pain, Nausea, Vomiting : denies: Dysuria, Frequency PD PAST MEDICAL HISTORY - Past Medical History Cardiovascular: Hypertension Respiratory: COPD Endocrine/Autoimmune: None GI: GERD, Ulcers, Colon polyps, Hepatitis : Benign prostate hypertrophy HEENT: Chronic hearing loss Psych: None Musculoskeletal: Osteoarthritis - Past Surgical History General: EGD, Colonoscopy HEENT: Cataracts - Present Medications Home Medications: Ambulatory Orders Medication Instructions Recorded Confirmed Aspirin 81 mg PO 01/21/13 01/21/13 Beclomethasone 80 Mcg [Qvar 80] 01/21/13 01/21/13 Multivitamin [Multivitamins] 1 each PO 01/21/13 01/21/13 [place]-3 Fatty Acids [Fish Oil] 500 mg PO 01/21/13 01/21/13 Vit C/Jayce AC/Lut/Copper/Znox 1 each PO 01/21/13 01/21/13 [Preservision Softgel] atenoloL [Tenormin] 50 mg PO DAILY 01/21/13 01/21/13 Hydrochlorothiazide 25 mg PO 01/24/13 01/24/13 Losartan [Cozaar] 100 mg PO DAILY 01/24/13 01/24/13 Amlodipine Besylate 5 DAILY 02/17/20 Metoprolol Tartrate 50 02/17/20 02/17/20 Tamsulosin [Flomax] 0.4 mg PO DAILY #20 capsule 02/17/20 - Allergies Allergies/Adverse Reactions: Allergies Allergy/AdvReac Type Severity Reaction Status Date / Time No Known Drug Allergies Allergy Verified 03/24/22 18:48 - Social History Does the pt smoke?: No Smoking Status: Former smoker Does the pt drink ETOH?: Yes Does the pt have substance abuse?: No - Immunizations Immunizations are current?: Yes - POLST Patient has POLST: No PD ED PE NORMAL - Vitals Vital signs reviewed: Yes (wide pulse pressure with low diastolic ) - General General: Alert and oriented X 3, No acute distress, Well developed/nourished - HEENT HEENT: Atraumatic, PERRL, EOMI - Neck Neck: Supple, no meningeal sign, No bony TTP - Cardiac Cardiac: RRR, No murmur, Other (loud second sound) - Respiratory Respiratory: No respiratory distress, Clear bilaterally - Abdomen Abdomen: Normal bowel sounds, Soft, Non tender, Non distended, No organomegaly - Rectal Rectal: Other (There is dark stool over the buttocks and this is positive for blood) - Back Back: No CVA TTP, No spinal TTP - Derm Derm: Normal color, Warm and dry, No rash - Extremities Extremities: No deformity, No edema - Neuro Neuro: Alert and oriented X 3, manager relocation 2-12 intact, No motor deficit, No sensory deficit, Normal speech Eye Opening: Spontaneous Motor: Obeys Commands Verbal: Oriented GCS Score: 15 - Psych Psych: Normal mood, Normal affect Results - Vitals Vitals: Vital Signs - 24 hr 03/24/22 03/24/22 03/24/22 18:43 21:58 22:24 Temperature 36.4 C L Heart Rate 98 90 93 Respiratory 24 19 18 Rate Blood Pressure 101/51 L 93/51 L 109/60 O2 Saturation 99 98 100 03/25/22 03/25/22 03/25/22 00:00 01:30 01:36 Temperature Heart Rate 106 H 110 H 107 H Respiratory 14 14 15 Rate Blood Pressure 106/63 91/72 87/58 L O2 Saturation 98 96 97 11/15/22 11/15/22 11/15/22 02:00 03:00 05:30 Temperature Heart Rate 98 92 90 Respiratory 16 15 13 Rate Blood Pressure 100/85 H 98/57 L 128/89 H O2 Saturation 96 96 92 Oxygen O2 Source Room air - EKG (time done) 1851 Rate: Rate (enter#) (88) Rhythm: NSR Intervals: Prolonged [place], RBBB Ischemia: ST elevation c/w ischemia (borderline) Compare to prior EKG: Unchanged from prior EKG (SPT 02-16-2022 no significant change) Computer interpretation: Agree with computer - Labs Labs: Laboratory Tests 03/24/22 03/24/22 03/24/22 19:09 19:09 19:09 WBC 13.2 H RBC 3.01 L Hgb 9.9 L Hct 30.4 L MCV 101.0 H MCH 32.9 H MCHC 32.6 RDW 13.1 Plt Count 202 MPV 9.1 Neut # (Auto) 9.9 H Lymph # (Auto) 2.5 Archer # (Auto) 0.7 Eos # (Auto) 0.0 Baso # (Auto) 0.0 Absolute Nucleated RBC 0.00 Nucleated RBC % 0.0 Sodium 131 L Potassium 5.2 H Chloride 101 Carbon Dioxide 22 Anion Gap 8.0 BUN 63 H Creatinine 0.8 Estimated GFR (MDRD) 91 Glucose 145 H Calcium 8.4 L Magnesium 2.0 Total Bilirubin 0.5 AST 15 ALT 20 Alkaline Phosphatase 77 Troponin I High Sens 12.5 B-Natriuretic Peptide Total Protein 5.8 L Albumin 3.3 Globulin 2.5 Albumin/Globulin Ratio 1.3 Lipase 36 Nasal Adenovirus (PCR) Nasal B. parapertussis DNA (PCR) Nasal Coronavir 229E PCR Nasal Coronavir HKU1 PCR Nasal Coronavir NL63 PCR Nasal Coronavir OC43 PCR Nasal Enterovir/Rhinovir PCR Nasal Influenza B PCR Nasal Influenza A PCR Nasal Parainfluen 1 PCR Nasal Parainfluen 2 PCR Nasal Parainfluen 3 PCR Nasal Parainfluen 4 PCR Nasal RSV (PCR) Nasal B.pertussis DNA PCR Nasal C.pneumoniae (PCR) Edward Human Metapneumo PCR Nasal M.pneumoniae (PCR) Nasal SARS-CoV-2 (PCR) Stl Occult Blood (IFOB) Blood Type Antibody Screen Crossmatch IS Only 03/24/22 03/24/22 03/24/22 19:09 22:08 22:15 WBC RBC Hgb Hct MCV MCH MCHC RDW Plt Count MPV Neut # (Auto) Lymph # (Auto) Archer # (Auto) Eos # (Auto) Baso # (Auto) Absolute Nucleated RBC Nucleated RBC % Sodium Potassium Chloride Carbon Dioxide Anion Gap BUN Creatinine Estimated GFR (MDRD) Glucose Calcium Magnesium Total Bilirubin AST ALT Alkaline Phosphatase Troponin I High Sens B-Natriuretic Peptide 110 H Total Protein Albumin Globulin Albumin/Globulin Ratio Lipase Nasal Adenovirus (PCR) Nasal B. parapertussis DNA (PCR) Nasal Coronavir 229E PCR Nasal Coronavir HKU1 PCR Nasal Coronavir NL63 PCR Nasal Coronavir OC43 PCR Nasal Enterovir/Rhinovir PCR Nasal Influenza B PCR Nasal Influenza A PCR Nasal Parainfluen 1 PCR Nasal Parainfluen 2 PCR Nasal Parainfluen 3 PCR Nasal Parainfluen 4 PCR Nasal RSV (PCR) Nasal B.pertussis DNA PCR Nasal C.pneumoniae (PCR) Edward Human Metapneumo PCR Nasal M.pneumoniae (PCR) Nasal SARS-CoV-2 (PCR) Stl Occult Blood (IFOB) POSITIVE A Blood Type A POSITIVE Antibody Screen NEGATIVE Crossmatch IS Only See Detail 03/25/22 03/25/22 03/25/22 00:25 01:39 05:45 WBC RBC Hgb 8.8 L 7.9 L Hct 27.4 L 24.3 L MCV MCH MCHC RDW Plt Count MPV Neut # (Auto) Lymph # (Auto) Archer # (Auto) Eos # (Auto) Baso # (Auto) Absolute Nucleated RBC Nucleated RBC % Sodium Potassium Chloride Carbon Dioxide Anion Gap BUN Creatinine Estimated GFR (MDRD) Glucose Calcium Magnesium Total Bilirubin AST ALT Alkaline Phosphatase Troponin I High Sens B-Natriuretic Peptide Total Protein Albumin Globulin Albumin/Globulin Ratio Lipase Nasal Adenovirus (PCR) NOT DETECTED Nasal B. parapertussis DNA (PCR) NOT DETECTED Nasal Coronavir 229E PCR NOT DETECTED Nasal Coronavir HKU1 PCR NOT DETECTED Nasal Coronavir NL63 PCR NOT DETECTED Nasal Coronavir OC43 PCR NOT DETECTED Nasal Enterovir/Rhinovir PCR NOT DETECTED Nasal Influenza B PCR NOT DETECTED Nasal Influenza A PCR NOT DETECTED Nasal Parainfluen 1 PCR NOT DETECTED Nasal Parainfluen 2 PCR NOT DETECTED Nasal Parainfluen 3 PCR NOT DETECTED Nasal Parainfluen 4 PCR NOT DETECTED Nasal RSV (PCR) NOT DETECTED Nasal B.pertussis DNA PCR NOT DETECTED Nasal C.pneumoniae (PCR) NOT DETECTED Edward Human Metapneumo PCR NOT DETECTED Nasal M.pneumoniae (PCR) NOT DETECTED Nasal SARS-CoV-2 (PCR) NOT DETECTED Stl Occult Blood (IFOB) Blood Type Antibody Screen Crossmatch IS Only PD MEDICAL DECISION MAKING - ED course Complexity details: considered differential, d/w patient, d/w family, d/w education sales consultant (Dr. Caballero general surgery here recommends bid PPI, NPO and she will plan on scoping later today. ) ED course: 86-year-old male with dyspnea as a presenting symptom along with jet black stool has guaiac positive stool a reduced hematocrit and he presents to the emergency department with mild hypotension. He is administered a 500 mL bolus of saline with improvement in his blood pressure and he is typed and crossmatched for a unit of blood. His initial hematocrit and hemoglobin are significantly reduced from his baseline. Today his hematocrit is 30.4 and his usual is 46. We administered intravenous saline, Protonix intravenously and repeated his H&H. They have continued to drop and the patient has developed intermittent h ypotension. He is administered a second 500 mL bolus of saline. Currently no beds available in the hospital. We will continue repeating H&H and transfuse when necessary. We are expecting discharges today and assume he will be admitted into the hospital today. - Consults Consults: Consulted (name) (mary kay [place] hospitalist [facility] recommends consultation with surgery prior to admission. Dr. Caballero consulted and will plan on endoscopy later today. ) Departure - Departure Disposition: 66 [facility] DC/Xfer Clinical Impression: GI bleeding Qualifiers: GI bleed type/associated pathology: melena Qualified Code(s): K92.1 - Melena Condition: Serious
[2022-03-25 00:46] LABS: HCT - HEMATOCRIT 27.4 % (42.0-52.0); HGB - HEMOGLOBIN 8.8 g/dL (14.0-18.0)
[2022-03-25] MEDS ORDERED: SODIUM CHLORIDE 0.9% 500 ML IV STA (01:37)
[2022-03-25 03:33] LABS: B. PARAPERTUSSIS- RESP PCR PAN NOT DETECTED; B. PERTUSSIS- RESP PCR PANEL NOT DETECTED; C. PNEUMONIAE- RESP PCR PANEL NOT DETECTED; CORONAVIRUS 229E-RESP PCR NOT DETECTED; CORONAVIRUS HKU1-RESP PCR NOT DETECTED; CORONAVIRUS NL63-RESP PCR NOT DETECTED; CORONAVIRUS OC43-RESP PCR NOT DETECTED; HUMAN METAPNEUMOVIRUS NOT DETECTED; INFLUENZA A- RESP PCR PANEL NOT DETECTED; INFLUENZA B - RESP PCR PANEL NOT DETECTED; M. PNEUMONIAE- RESP PCR PANEL NOT DETECTED; PARAINFLUENZA VIRUS 1 NOT DETECTED; PARAINFLUENZA VIRUS 2 NOT DETECTED; PARAINFLUENZA VIRUS 3 NOT DETECTED; PARAINFLUENZA VIRUS 4 NOT DETECTED; RHINOVIRUS/ENTEROVIRUS NOT DETECTED; RSV- RESP PCR PANEL NOT DETECTED; SARS-CoV-2 -RESP PCR PANEL NOT DETECTED
[2022-03-25] MEDS ORDERED: PANTOPRAZOLE 40 MG VIAL IVP STA (04:35)
[2022-03-25 05:49] LABS: HCT - HEMATOCRIT 24.3 % (42.0-52.0); HGB - HEMOGLOBIN 7.9 g/dL (14.0-18.0)
[2022-03-25] MEDS ORDERED: SODIUM CHLORIDE 0.9% 1,000 ML IV STA ×3 (06:57→08:14)
--- NOTE | 2022-03-25 07:07 | CONSULTATION NOTE ---
Referring Provider Name of Referring Provider:: Primary team (medicine) Consult Date: 03/25/22 Chief Complaint - Chief Complaint Chief Complaint: SOA History of Present Illness - Admitted From Admitted From:: ED - History Obtained From Records Reviewed: yes History obtained from: patient, chart, ED provider Exam Limitations: patient hard of hearing - History of Present Illness HPI Comment/Other: This is an 86 y/o M who presents to the ED with SOA and dark stools for one day. He denies abdominal pain, nausea, or vomiting. He has a remote history of a duodenal ulcer more than 30 years ago. He uses NSAIDs (aleve and IBU) twice per day and usually drinks 1-2 alcoholic beverages per day. He denies GERD and states he's been tolerating a regular diet without difficulty. Today, he's felt very SOA and fatigued with minimal activity, prompting him to come to the ED. He has also had several dark stools today. He has PMH significant for HTN, COPD, BPH, and has been told he has atrial fibrillation in the past. He is not taking any blood thinners, per his report (home meds do include 81mg ASA). For suspected upper GI bleed, I am consulted. At the time of my exam, the patient denies any pain or nausea. He is comfortable lying down and denies any CP, SOA. History - Past Medical History Cardiovascular: reports: Hypertension, Atrial fibrillation (currently in and out of A fib on monitor in ED, patient states he's had this before) Respiratory: reports: COPD Endocrine/Autoimmune: reports: None GI: reports: GERD (patient denies symptoms), Ulcers (duodenal ulcer in ), Colon polyps, Hepatitis : reports: Benign prostate hypertrophy HEENT: reports: Macular degeneration, Chronic hearing loss Psych: reports: None Musculoskeletal: reports: Osteoarthritis, Chronic back pain (sciatica) MRSA Hx?: No - Past Surgical History General: reports: EGD, Colonoscopy HEENT: reports: Cataracts - Family & Social History Living arrangement: At home - Substance History Use: Uses substance without health or social issues: Alcohol (1-2/day) - POLST Patient has POLST: No Meds/Allgy - Home Medications Home Medications: Ambulatory Orders Medication Instructions Recorded Confirmed Aspirin 81 mg PO 01/21/13 01/21/13 Beclomethasone 80 Mcg [Qvar 80] 01/21/13 01/21/13 Multivitamin [Multivitamins] 1 each PO 01/21/13 01/21/13 [place]-3 Fatty Acids [Fish Oil] 500 mg PO 01/21/13 01/21/13 Vit C/Jayce AC/Lut/Copper/Znox 1 each PO 01/21/13 01/21/13 [Preservision Softgel] atenoloL [Tenormin] 50 mg PO DAILY 01/21/13 01/21/13 Hydrochlorothiazide 25 mg PO 01/24/13 01/24/13 Losartan [Cozaar] 100 mg PO DAILY 01/24/13 01/24/13 Amlodipine Besylate 5 DAILY 02/17/20 Metoprolol Tartrate 50 02/17/20 02/17/20 Tamsulosin [Flomax] 0.4 mg PO DAILY #20 capsule 02/17/20 - Allergies Allergies/Adverse Reactions: Allergies Allergy/AdvReac Type Severity Reaction Status Date / Time No Known Drug Allergies Allergy Verified 03/24/22 18:48 Review of Systems - Other Findings Other Findings: A complete 10 point review of symptoms is otherwise negative except for that noted in HPI and PMH. Exam - Vital Signs Reviewed Vital Signs: Yes Vital Signs: Vital Signs x48h Pulse Resp BP Pulse Ox 03/25/22 05:30 90 13 128/89 H 92 03/25/22 03:00 92 15 98/57 L 96 03/25/22 02:00 98 16 100/85 H 96 03/25/22 01:36 107 H 15 87/58 L 97 03/25/22 01:30 110 H 14 91/72 96 03/25/22 00:00 106 H 14 106/63 98 - Physical Exam General Appearance: positive: No acute distress, Alert Eyes Bilateral: positive: Normal inspection, PERRL, EOMI ENT: positive: ENT inspection nml, Pharynx nml Neck: positive: Nml inspection, No JVD, Trachea midline Respiratory: positive: No respiratory distress, Breath sounds nml Cardiovascular: positive: No murmur, Irregularly irregular Peripheral Pulses: positive: 2+ Abdomen: positive: Non-tender, No distention. negative: Guarding, Rebound Skin: positive: No rash, Warm, Dry, Pallor (slight) Extremities: positive: Non-tender, No pedal edema Neurologic/Psychiatric: positive: Oriented x3 Conclusion and Plan - Lab Results Laboratory Results 03/25/22 05:45: Hgb 7.9 L, Hct 24.3 L 03/25/22 01:39: Nasal Adenovirus (PCR) NOT DETECTED, Nasal B. parapertussis DNA (PCR) NOT DETECTED, Nasal Coronavir 229E PCR NOT DETECTED, Nasal Coronavir HKU1 PCR NOT DETECTED, Nasal Coronavir NL63 PCR NOT DETECTED, Nasal Coronavir OC43 PCR NOT DETECTED, Nasal Enterovir/Rhinovir PCR NOT DETECTED, Nasal Influenza B PCR NOT DETECTED, Nasal Influenza A PCR NOT DETECTED, Nasal Parainfluen 1 PCR NOT DETECTED, Nasal Parainfluen 2 PCR NOT DETECTED, Nasal Parainfluen 3 PCR NOT DETECTED, Nasal Parainfluen 4 PCR NOT DETECTED, Nasal RSV (PCR) NOT DETECTED, Nasal B.pertussis DNA PCR NOT DETECTED, Nasal C.pneumoniae (PCR) NOT DETECTED, Edward Human Metapneumo PCR NOT DETECTED, Nasal M.pneumoniae (PCR) NOT DETECTED, Nasal SARS-CoV-2 (PCR) NOT DETECTED 03/25/22 00:25: Hgb 8.8 L, Hct 27.4 L 03/24/22 22:15: Blood Type A POSITIVE, Antibody Screen NEGATIVE, Crossmatch IS Only See Detail 03/24/22 22:08: Stl Occult Blood (IFOB) POSITIVE A 03/24/22 19:09: B-Natriuretic Peptide 110 H 03/24/22 19:09: Troponin I High Sens 12.5 03/24/22 19:09: Sodium 131 L, Potassium 5.2 H, Chloride 101, Carbon Dioxide 22, Anion Gap 8.0, BUN 63 H, Creatinine 0.8, Estimated GFR (MDRD) 91, Glucose 145 H, Calcium 8.4 L, Magnesium 2.0, Total Bilirubin 0.5, AST 15, ALT 20, Alkaline Phosphatase 77, Total Protein 5.8 L, Albumin 3.3, Globulin 2.5, Albumin/Globulin Ratio 1.3, Lipase 36 03/24/22 19:09: WBC 13.2 H, RBC 3.01 L, Hgb 9.9 L, Hct 30.4 L, MCV 101.0 H, MCH 32.9 H, MCHC 32.6, RDW 13.1, Plt Count 202, MPV 9.1, Neut # (Auto) 9.9 H, Lymph # (Auto) 2.5, [place] # (Auto) 0.7, Eos # (Auto) 0.0, Baso # (Auto) 0.0, Absolute Nucleated RBC 0.00, Nucleated RBC % 0.0 - Plan Plan: 86 y/o M with: 1. Acute blood loss anemia -likely due to UGI source -plan for emergent EGD this AM to control bleeding -patient HD stable. He's only received 1L fluid in last 12 hours. 1L bolus and MIVF ordered. -follow, hgb, recommend transfusion if hgb <7 or symptomatic despite adequate fluid resuscitation. 2. GI bleed, likely UGI source - dark stools for last 24 hours, elevated BUN indicate likely UGI source - EGD this AM - I discussed the r/b/a of EGD with the patient including bleeding, rebleeding, and perforation. He voiced understanding, his questions were answered and he wished to proceed. A consent was signed by the patient in the ED. - BID IV PPI ordered - patient NPO since arrival - further recs pending endoscopy findings 3. BPH, HTN, a fib, COPD - as per primary team Thank you for consulting me in the care of this patient. I will continue to follow closely.
[2022-03-25] MEDS ORDERED: ePHEDrine 50 MG/ML VIAL IVP ONE (07:21)
[2022-03-25] MEDS ORDERED: PROPOFOL 200 MG/20 ML VIAL IVP ONE (07:21)
[2022-03-25] MEDS ORDERED: PHENYLEPHRINE 10 MG/ML VIAL ONE (07:21)
--- NOTE | 2022-03-25 07:43 | ANESTHESIA ---
Pre-Anesthesia VS, & Labs - Diagnosis GI bleed - Procedure EGD Vital Signs: Temp Pulse Resp BP Pulse Ox O2 Flow Rate 36.4 C L 90 13 128/89 H 92 03/24/22 18:43 03/25/22 05:30 03/25/22 05:30 03/25/22 05:30 03/25/22 05:30 Height: 5 ft 6 in Weight (kg): 68.039 kg Body Mass Index: 24.2 BMI Classification: Normal - NPO >8 hours - Lab Results Current Lab Results: Laboratory Tests 03/25/22 05:45: Hgb 7.9 L, Hct 24.3 L 03/25/22 00:25: Hgb 8.8 L, Hct 27.4 L 03/24/22 22:15: Blood Type A POSITIVE, Antibody Screen NEGATIVE, Crossmatch IS Only See Detail 03/24/22 19:09: B-Natriuretic Peptide 110 H 03/24/22 19:09: Troponin I High Sens 12.5 03/24/22 19:09: Sodium 131 L, Potassium 5.2 H, Chloride 101, Carbon Dioxide 22, Anion Gap 8.0, BUN 63 H, Creatinine 0.8, Estimated GFR (MDRD) 91, Glucose 145 H, Calcium 8.4 L, Magnesium 2.0, Total Bilirubin 0.5, AST 15, ALT 20, Alkaline Phosphatase 77, Total Protein 5.8 L, Albumin 3.3, Globulin 2.5, Albumin/Globulin Ratio 1.3, Lipase 36 03/24/22 19:09: WBC 13.2 H, RBC 3.01 L, Hgb 9.9 L, Hct 30.4 L, MCV 101.0 H, MCH 32.9 H, MCHC 32.6, RDW 13.1, Plt Count 202, MPV 9.1, Neut # (Auto) 9.9 H, Lymph # (Auto) 2.5, [place] # (Auto) 0.7, Eos # (Auto) 0.0, Baso # (Auto) 0.0, Absolute Nucleated RBC 0.00, Nucleated RBC % 0.0 Fish Bones: 03/25/22 05:45 03/24/22 19:09 Home Medications and Allergies Active Medications Sodium Chloride (Normal Saline 0.9%) 1,000 mls @ 150 mls/hr IV .Q6H40M STA Stop: 03/25/22 13:37 Last Admin: 03/25/22 07:30 Dose: 150 mls/hr Aspirin 81 mg PO 01/21/13 Beclomethasone 80 Mcg [Qvar 80] 01/21/13 Multivitamin [Multivitamins] 1 each PO 01/21/13 [place]-3 Fatty Acids [Fish Oil] 500 mg PO 01/21/13 Vit C/Jayce AC/Lut/Copper/Znox [Preservision Softgel] 1 each PO 01/21/13 atenoloL [Tenormin] 50 mg PO DAILY 01/21/13 Hydrochlorothiazide 25 mg PO 01/24/13 Losartan [Cozaar] 100 mg PO DAILY 01/24/13 Amlodipine Besylate 5 DAILY 02/17/20 Metoprolol Tartrate 50 02/17/20 Allergies/Adverse Reactions: Allergies Allergy/AdvReac Type Severity Reaction Status Date / Time No Known Drug Allergies Allergy Verified 03/24/22 18:48 Anes History & Medical History - Anesthetic History Anesthesia Complications: reports: No previous complications Family history of Anesthesia Complications: Denies Family history of Malignant Hyperthermia: Denies - Medical History Cardiovascular: reports: Hypertension, Atrial fibrillation (currently in and out of A fib on monitor in ED, patient states he's had this before) Pulmonary: reports: COPD Gastrointestinal: reports: GERD (patient denies symptoms), Ulcers (duodenal ulcer in 1980s), Colon polyps, Hepatitis Urinary: reports: Benign prostate hypertrophy Musculoskeletal: reports: Osteoarthritis, Chronic back pain (sciatica) Endocrine/Autoimmune: reports: None Smoking Status: Former smoker - Surgical History General: reports: EGD, Colonoscopy Eyes Ears Nose Throat (EENT): reports: Cataracts Exam General: Alert, Oriented x3, Cooperative Dental: WNL Mouth Openin Fingerbreadth Neck Mobility: Normal Mallampati classification: II Thyromental Distance: 4-6 cm Respiratory: No respiratory distress Cardiovascular: Other (A fib, BBB) Plan Anesthesia Type: Total IV Consent for Procedure(s) Verified and Reviewed: Yes Code Status: Attempt Resuscitation ASA classification: 3-Severe systemic disease Is this case an emergency?: Yes
[2022-03-25] MEDS ORDERED: SODIUM CHLORIDE 0.9% 1,000 ML IV ONE (08:12)
[2022-03-25] MEDS ORDERED: NALOXONE 0.4 MG/ML VIAL IVP PRN (08:16)
[2022-03-25] MEDS ORDERED: ATROPINE ABBOJECT 1 MG/10 ML SYRINGE IVP PRN (08:16)
[2022-03-25] MEDS ORDERED: ePHEDrine 50 MG/ML VIAL IVP PRN (08:16)
[2022-03-25] MEDS ORDERED: ONDANSETRON 4 MG/2 ML VIAL IVP PRN ×2 (08:16→08:28)
[2022-03-25] MEDS ORDERED: HYDROmorphone 0.5 MG/0.5 ML SYRINGE IVP PRN (08:16)
[2022-03-25] MEDS ORDERED: fentaNYL 100 MCG/2 ML VIAL IVP PRN (08:16)
[2022-03-25] MEDS ORDERED: METOCLOPRAMIDE 10 MG/2 ML VIAL IVP PRN (08:16)
[2022-03-25] MEDS ORDERED: MORPHINE 2 MG/ML CARPUJECT IVP PRN (08:16)
[2022-03-25] MEDS ORDERED: LACTATED RINGERS 1,000 ML IV ONE (08:17)
[2022-03-25] MEDS ORDERED: ACETAMINOPHEN 325 MG TABLET PO PRN (08:28)
[2022-03-25] MEDS ORDERED: SODIUM CHLORIDE FLUSH 0.9% 10 ML SYRINGE IVP PRN (08:28)
--- NOTE | 2022-03-25 08:36 | HISTORY & PHYSICAL EXAMINATION ---
Chief Complaint - Chief Complaint Chief Complaint: Near syncope and shortness of breath History of Present Illness - Admitted From Admitted From:: From ED to OR for EGD then admitted - History Obtained From History obtained from: Gen Surgeon and the patient - History of Present Illness HPI Comment/Other: This is an 86-year-old white male with a history of hypertension, COPD, A. fib, probably paroxysmal, and duodenal ulcer in the past as well as a GI bleed in his colon, he thinks. The patient drinks 1-2 glasses of wine per day and does use NSAIDs. Patient presented with complaints of near syncope and shortness of breath with activity for a few days, which is not his usual. In the ED he was found to have black stool which is heme positive. Consultation with general surgery was obtained and he has already gone to the OT and undergone an EGD. This found no abnormalities, biopsies were taken. The general surgeon gave me the summary. His baseline hemoglobin is 14, first hemoglobin here was 10 and it has decreased now to 8 after receiving just 1 L of NS while in the ED. Blood pressure on presentation was hypotensive at 93/51. Heart rate has been in the 90s to 120s. The general surgeon described that he was in paroxysmal A. fib during the EGD. The patient is being admitted to the Hospitalist team for further management of an acute GI bleed causing anemia and hypotension. We discussed his CODE BLUE wishes and he wants to be a full code. History - Past Medical History Cardiovascular: reports: Hypertension Respiratory: reports: COPD Endocrine/Autoimmune: reports: None GI: reports: GERD, Ulcers, Colon polyps, Hepatitis : reports: Benign prostate hypertrophy HEENT: reports: Chronic hearing loss Psych: reports: None Musculoskeletal: reports: Osteoarthritis MRSA Hx?: No - Past Surgical History General: reports: EGD, Colonoscopy HEENT: reports: Cataracts - Family & Social History Family History: Mother: , Father: , Sister: , Brother: Family History Comment/Other: No diseases run in the family. Living arrangement: At home Living Situation: With spouse/s.o. 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 He quit smoking 40 years ago. He drinks 1 to 2 glasses of wine every night with dinner. No illicit drug use history. - Substance History Use: Uses substance without health or social issues: Alcohol (1-2/day) - POLST Patient has POLST: No Meds/Allgy - Home Medications Home Medications: Ambulatory Orders Medication Instructions Recorded Confirmed Multivitamin [Multivitamins] 1 each PO DAILY 01/21/13 03/25/22 [place]-3 Fatty Acids [Fish Oil] 500 mg PO DAILY 01/21/13 03/25/22 Vit C/Jayce AC/Lut/Copper/Znox 1 each PO DAILY 01/21/13 03/25/22 [Preservision Softgel] Losartan [Cozaar] 100 mg PO DAILY 01/24/13 03/25/22 Amlodipine Besylate 1 tab PO DAILY 02/17/20 03/25/22 Tamsulosin [Flomax] 0.4 mg PO DAILY #20 capsule 02/17/20 03/25/22 Albuterol Sulf [Ventolin Hfa 2 puffs PO QID PRN 03/25/22 03/25/22 Inhaler] Cholecalciferol [Vitamin D3] 1 tab PO DAILY 03/25/22 03/25/22 Finasteride [Proscar] 1 tab PO DAILY 03/25/22 03/25/22 Fluticasone Propion/Salmeterol 1 puffs PO BID 03/25/22 03/25/22 [Fluticasone-Salmeterol 250-50] Metoprolol Succinate [Toprol Xl] 1 tab PO DAILY 03/25/22 03/25/22 - Allergies Allergies/Adverse Reactions: Allergies Allergy/AdvReac Type Severity Reaction Status Date / Time No Known Drug Allergies Allergy Verified 03/24/22 18:48 Review of Systems - Cardiovascular Cariovascular: reports: Lightheadedness, Exertional dyspnea - Gastrointestinal Gastrointestinal: reports: Black stools - Integumentary Integumentary: reports: Other (He had an abnormal mole removed from his right nares yesterday.) - All Other Systems All Other Systems: reports: Reviewed and negative Exam - Vital Signs Vital Signs: Vital Signs x48h Temp Pulse Resp BP Pulse Ox 03/25/22 08:20 36.2 C L 86 14 102/62 100 03/25/22 08:15 36.2 C L 84 16 94/64 99 03/25/22 08:12 36.2 C L 86 16 84/56 L 99 03/25/22 07:00 91 12 106/81 H 93 03/25/22 05:30 90 13 128/89 H 92 03/25/22 03:00 92 15 98/57 L 96 03/25/22 02:00 98 16 100/85 H 96 03/25/22 01:36 107 H 15 87/58 L 97 03/25/22 01:30 110 H 14 91/72 96 - Physical Exam General Appearance: positive: No acute distress, Alert Eyes Bilateral: positive: Normal inspection, EOMI ENT: positive: No signs of dehydration, Other (Bandage at R nares) Neck: positive: Nml inspection, Thyroid nml Respiratory: positive: No respiratory distress, Breath sounds nml Cardiovascular: positive: Irregularly irregular, Systolic murmur Abdomen: positive: Non-tender, Nml bowel sounds, No distention Skin: positive: Warm, Dry Extremities: positive: Non-tender, No pedal edema Neurologic/Psychiatric: positive: Oriented x3, Motor nml Conclusion/Plan - Problem List (1) GI bleeding Conclusion/Plan: Who started to have black stool 1 day ago. With dizziness and shortness of breath he presented to the ER. He remembers having a similar episode approximately 5 to 7 years ago and says the EGD was normal but a colonoscopy was abnormal; he cannot remember the diagnosis that was found. Because of his low blood pressure would admit to inpatient status. Will continue with gentle IV hydration. Follow H/H every 12 hours, plan would be to transfuse if hemoglobin goes under 7. He already had the EGD and the general surgeon is planning a colon prep, clear liquid diet today and colonoscopy tomorrow. Hold any anticoagulants or antiplatelet agents. Qualifiers: GI bleed type/associated pathology: melena Qualified Code(s): K92.1 - Melena (2) Anemia Conclusion/Plan: From GI bleed Will follow H/H q12h Plan transfusion if Hgb <7 Likely will be discharged on iron replacement, he and at bedside were informed of this. (3) Hypotension Conclusion/Plan: From GI blood loss Will hold any BP meds (4) Paroxysmal A-fib Conclusion/Plan: Will continue meds for rate control, with holding parameters He will not be on any anticoagulants for a while, due to GI bleeding. Duration will depend on what is found at colonoscopy. (5) Heart murmur Conclusion/Plan: He has a loud systolic murmur and does not know what the findings were when Echo done in [place] earlier this year. Per physical exam, it sounds like . Will check for prior Echo here or request records. No indication for Echo this admission. - Lab Results Fish Bones: 03/26/22 04:02 03/26/22 04:02 - Diagnostic Imaging Results Diagnostic Imaging Results: positive: Final report reviewed - Other Other Results/Comments: Attestation: The patient is expected to be discharged or transferred to another facility within 96 hours: Yes.
[2022-03-25] MEDS ORDERED: polyethylene glycoL 3350 238 GM BOTTLE PO ONE (09:00)
[2022-03-25] MEDS ORDERED: LACTATED RINGERS 1,000 ML IV SCH (09:00)
[2022-03-25] MEDS: SODIUM CHLORIDE FLUSH 0.9% 10 ML SYRINGE IVP SCH ×2 (09:20→17:04)
--- NOTE | 2022-03-25 14:26 | PHARMACY PROGRESS NOTE ---
- Best Possible Medication History Admit Date and Time: 03/25/22 0655 Processed by: Pharmacy Medication History completed: Yes Patient Interview: Completed Secondary Source(s): Prescription bottles, Spouse/Significant other, Pharmacy records (Pt's named Flaca knows meds.) As the person ultimately responsible for medication therapy, providers are able to order a medication from an existing home medication list in [facility] via the "Reconcile Routine" prior to Confirmation of that medication by customer support coordinator. Such practice is discouraged except when the physician, in their clinical judgment, deems that a medical need exists for a medication without regard to previous use.
--- NOTE | 2022-03-25 17:50 | ANESTHESIA POST OP EVALUATION ---
Anesthesia Post Eval - Post Anesthesia Eval Vitals: Last Vital Signs Temp 36.5 C 03/25/22 11:00 Pulse 92 03/25/22 16:31 Resp 18 03/25/22 13:00 BP 130/66 03/25/22 16:31 Pulse Ox 99 03/25/22 16:31 O2 Flow Rate CV Function Including HR & BP: Stable Pain Control: Satisfactory Nausea & Vomiting: Negative Mental Status: Baseline Respiratory Status: Airway Patent Hydration Status: Satisfactory Anesthesia Complications: None
[2022-03-26 04:29] LABS: HCT - HEMATOCRIT 22.1 % (42.0-52.0); HGB - HEMOGLOBIN 7.1 g/dL (14.0-18.0); MEAN CORPUSCULAR HEMOGLOBIN 32.6 pg (27.0-31.0); MEAN CORPUSCULAR HGB CONC 32.1 g/dL (32.0-36.0); MEAN CORPUSCULAR VOLUME 101.4 fL (80.0-94.0); MEAN PLATELET VOLUME 9.4 fL (7.4-11.4); RED BLOOD COUNT 2.18 10^6/uL (4.70-6.10); RED CELL DISTRIBUTION WIDTH 13.5 % (12.0-15.0); WHITE BLOOD COUNT 7.1 x10^3/uL (4.8-10.8)
[2022-03-26 04:37] LABS: CALCIUM 8.1 mg/dL (8.5-10.3); CREATININE 0.6 mg/dL (0.6-1.2); POTASSIUM 4.4 mmol/L (3.5-5.0)
[2022-03-26] MEDS: SODIUM CHLORIDE FLUSH 0.9% 10 ML SYRINGE IVP SCH ×3 (06:14→23:39)
[2022-03-26] MEDS: PANTOPRAZOLE 40 MG TABLET PO SCH (06:18)
[2022-03-26] MEDS: BUDESONIDE 0.5 MG/2 ML NEB INH SCH ×2 (07:56→17:03)
[2022-03-26] MEDS: FORMOTEROL FUMARATE NEB 20 MCG/2 ML INH SCH ×2 (07:56→17:02)
[2022-03-26] MEDS ORDERED: PROPOFOL 500 MG/50 ML 500 MG/50 ML VIAL ONE (08:20)
[2022-03-26] MEDS ORDERED: diphenhydrAMINE 25 MG CAPSULE PO PRN (08:21)
--- NOTE | 2022-03-26 09:50 | PROVIDER PROGRESS NOTE ---
Subjective - General Admit Date: 03/25/22 Procedure Date: 03/26/22 Post Op Days: 0 Procedure Performed: EGD 03/25, CE 03/26 - Review of Systems General: positive: Weakness, Fatigue Pulmonary: positive: Shortness of breath (with activity) Cardiovascular: negative: Chest pain Gastrointestinal: positive: Melena. negative: Nausea, Vomiting, Abdominal pain All Other Systems: positive: Reviewed and negative Objective - Patient Data Reviewed Vital Signs: Yes Vital Signs: Vital Signs x48h Temp Pulse Pulse Resp BP Pulse Ox 03/26/22 07:58 92 16 03/26/22 07:40 36.8 C 86 16 132/66 H 98 03/26/22 04:22 36.4 C L 109 H 20 126/69 100 Weight: Weight 03/24/22 03/25/22 03/26/22 23:59 23:59 23:59 Weight (kg) 68.039 kg 68 kg 69 kg Intake & Output: Intake and Output Totals x24h 03/24/22 03/25/22 03/26/22 23:59 23:59 23:59 Intake Total 4737.500 300 Output Total 626 Balance 4111.500 300 - Lab Results Lab Results: 03/26/22 04:02 03/26/22 04:02 Other Lab Results: Lab Results x24hrs 03/26/22 03/26/22 03/25/22 Range/Units 04:02 04:02 16:41 WBC 7.1 (4.8-10.8) x10^3/uL RBC 2.18 L (4.70-6.10) 10^6/uL Hgb 7.1 L 8.1 L (14.0-18.0) g/dL Hct 22.1 L (42.0-52.0) % MCV 101.4 H (80.0-94.0) fL MCH 32.6 H (27.0-31.0) pg MCHC 32.1 (32.0-36.0) g/dL RDW 13.5 (12.0-15.0) % Plt Count 158 (130-450) 10^3/uL MPV 9.4 (7.4-11.4) fL Sodium 137 (135-145) mmol/L Potassium 4.4 (3.5-5.0) mmol/L Chloride 108 (101-111) mmol/L Carbon Dioxide 24 (21-32) mmol/L Anion Gap 5.0 L (6-13) BUN 24 H (6-20) mg/dL Creatinine 0.6 (0.6-1.2) mg/dL Estimated GFR (MDRD) 127 (>89) Glucose 105 H (70-100) mg/dL Calcium 8.1 L (8.5-10.3) mg/dL Blood Type Antibody Screen Crossmatch IS Only 03/25/22 03/24/22 Range/Units 10:51 22:15 WBC (4.8-10.8) x10^3/uL RBC (4.70-6.10) 10^6/uL Hgb 8.2 L (14.0-18.0) g/dL Hct (42.0-52.0) % MCV (80.0-94.0) fL MCH (27.0-31.0) pg MCHC (32.0-36.0) g/dL RDW (12.0-15.0) % Plt Count (130-450) 10^3/uL MPV (7.4-11.4) fL Sodium (135-145) mmol/L Potassium (3.5-5.0) mmol/L Chloride (101-111) mmol/L Carbon Dioxide (21-32) mmol/L Anion Gap (6-13) BUN (6-20) mg/dL Creatinine (0.6-1.2) mg/dL Estimated GFR (MDRD) (>89) Glucose (70-100) mg/dL Calcium (8.5-10.3) mg/dL Blood Type A POSITIVE Antibody Screen NEGATIVE Crossmatch IS Only See Detail - Current Medications Current Medications: Current Medications Generic Name Dose Route Start Last Admin Trade Name Freq PRN Reason Stop Dose Admin Budesonide 0.5 mg 03/26/22 07:00 03/26/22 07:56 Budesonide 0.5 Mg/2 Ml Neb INH 0.5 mg RTBID TEO Administration Formoterol Fumarate 20 mcg 03/26/22 07:00 03/26/22 07:56 Formoterol Fumarate Neb 20 Mcg/2 Ml INH 20 mcg RTBID TEO Administration Pantoprazole Sodium 40 mg 03/26/22 07:00 03/26/22 06:18 Pantoprazole 40 Mg Tablet PO 40 mg QDAC TEO Administration Sodium Chloride 10 ml 03/25/22 09:00 03/26/22 06:14 Sodium Chloride Flush 0.9% 10 Ml Syringe IVP 10 ml 0100,0900,1700 TEO Administration - Physical Exam General Appearance: positive: No acute distress, Alert Eyes Bilateral: positive: Normal inspection, PERRL, EOMI Neck: positive: Trachea midline Respiratory: positive: No respiratory distress Cardiovascular: positive: No gallop, Tachycardia. negative: No murmur (JONATHAN) Abdomen: positive: Non-tender, No distention. negative: Guarding, Rebound Rectal: positive: Black stool. negative: Mass Skin: positive: Warm, Dry, Pallor Extremities: positive: Non-tender, Full ROM Neurologic/Psychiatric: positive: Oriented x3 Impression/Plan - Problem List Problem List: 86 y/o M with: 1. Acute blood loss anemia -Hgb 7.1 this AM, symptomatic -will transfuse 2 units pRBC's this AM, continue to follow hgb. -patient HD stable, but symptomatic 2. GI bleed, likely diverticular bleed - EGD 03/25 was unremarkable. Colonoscopy this AM demonstrated clot and melanoti c liquid stool throughout colon. No active bleeding, or masses identified. Three small polyps removed. Diverticulosis throughout the colon, most likely source of bleeding - recommend continued PPI given remote h/o PUD - continue clear liquid diet until hgb stable, then adat - if bleeding worsens, consider CTA abd/pelvis 3. BPH, HTN, a fib, COPD - as per primary team Thank you for consulting me in the care of this patient. I will continue to follow closely.
[2022-03-26] MEDS ORDERED: SODIUM CHLORIDE 0.9% 500 ML IV ONE (10:05)
--- NOTE | 2022-03-26 10:54 | ANESTHESIA POST OP EVALUATION ---
Anesthesia Post Eval - Post Anesthesia Eval Vitals: Last Vital Signs Temp 36.8 C 03/26/22 10:40 Pulse 89 03/26/22 10:40 Resp 18 03/26/22 10:40 BP 130/70 03/26/22 10:40 Pulse Ox 96 03/26/22 10:40 O2 Flow Rate CV Function Including HR & BP: Stable Pain Control: Satisfactory Nausea & Vomiting: Negative Mental Status: Baseline Respiratory Status: Airway Patent Hydration Status: Satisfactory Anesthesia Complications: None
--- NOTE | 2022-03-26 17:04 | PROVIDER PROGRESS NOTE ---
Assessment/Plan - Problem List (1) GI bleeding Qualifiers: GI bleed type/associated pathology: melena Qualified Code(s): K92.1 - Melena Assessment/Plan: Pt started to have black stool several days ago. With dizziness and shortness of breath he presented to the ER. He remembers having a similar episode approximately 5 to 7 years ago and says the EGD was normal but a colonoscopy was abnormal; he cannot remember the diagnosis that was found. He already had an EGD with unremarkable findings. Colonoscopy was done today and clots were seen near diverticuli Plan: Will continue with gentle IV hydration or transfusions. Follow H/H every 12 hours, plan would be to transfuse if hemoglobin goes under 7. Clear liquid diet today and advance when Hgb stable, per Gen Surg Hold any anticoagulants or antiplatelet agents. Qualifiers: GI bleed type/associated pathology: melena Qualified Code(s): K92.1 - Melena (2) Anemia from GI blood loss Conclusion/Plan: From GI bleed Will follow H/H q12h Plan transfusion if Hgb <7. He got 2U transfused this morning when Hgb dropped to 7.1 He will be discharged on iron replacement (3) Hypotension Conclusion/Plan: From GI blood loss. It is improving We are holding any BP lowering meds, except those for BPH (4) Paroxysmal A-fib Conclusion/Plan: Will continue meds for rate control, with holding parameters He will not be on any anticoagulants for a while, due to GI bleeding. (5) Heart murmur Conclusion/Plan: He has a loud systolic murmur and does not know what the findings were when Echo done in [place] earlier this year. Per physical exam, it sounds like . No indication for Echo this admission. (6) COPD without exacerbation Conclusion/Plan: We will resume his usual inhalers (7) BPH Conclusion/Plan: Home meds resumed. - Current Meds Current Meds: Current Medications Generic Name Dose Route Start Last Admin Trade Name Freq PRN Reason Stop Dose Admin Budesonide 0.5 mg 03/26/22 07:00 03/26/22 07:56 Budesonide 0.5 Mg/2 Ml Neb INH 0.5 mg RTBID TEO Administration Formoterol Fumarate 20 mcg 03/26/22 07:00 03/26/22 07:56 Formoterol Fumarate Neb 20 Mcg/2 Ml INH 20 mcg RTBID TEO Administration Pantoprazole Sodium 40 mg 03/26/22 07:00 03/26/22 06:18 Pantoprazole 40 Mg Tablet PO 40 mg QDAC TEO Administration Sodium Chloride 10 ml 03/25/22 09:00 03/26/22 09:56 Sodium Chloride Flush 0.9% 10 Ml Syringe IVP 10 ml 0100,0900,1700 TEO Administration - Lab Result Fish Bone Diagrams: 03/27/22 16:09 03/26/22 04:02 - Additional Planning My Orders: My Active Orders 03/26/22 Lunch Clear Liquid Diet [DIET] 03/27/22 05:00 CBC W/O DIFF (HEMOGRAM) [HEME] DAILYLAB 03/28/22 05:00 CBC W/O DIFF (HEMOGRAM) [HEME] DAILYLAB Subjective - Subjective Patient Reports: Resting Comfortably, Fatigue (Still feels groggy after having conscious sedation for the colonoscopy. Wonders why he is still on clear liquids after both endoscopies are done now.) Objective Vital Signs: Vital Signs - 24 hr 03/25/22 03/25/22 03/26/22 18:49 20:31 00:59 Temperature 36.6 C 36.6 C 36.3 C L Heart Rate Heart Rate [ Brachial] Heart Rate [ 89 91 Monitoring electrodes] Respiratory 22 18 Rate Blood Pressure 119/66 104/83 H [Left Brachial artery] Blood Pressure [Right] O2 Saturation 98 99 03/26/22 03/26/22 03/26/22 04:22 07:40 07:58 Temperature 36.4 C L 36.8 C Heart Rate 92 Heart Rate [ Brachial] Heart Rate [ 109 H 86 Monitoring electrodes] Respiratory 20 16 16 Rate Blood Pressure 126/69 132/66 H [Left Brachial artery] Blood Pressure [Right] O2 Saturation 100 98 03/26/22 03/26/22 03/26/22 09:35 09:48 10:40 Temperature 36.3 C L 36.3 C L 36.8 C Heart Rate Heart Rate [ 89 Brachial] Heart Rate [ 82 98 Monitoring electrodes] Respiratory 15 17 18 Rate Blood Pressure 129/71 143/49 H 130/70 [Left Brachial artery] Blood Pressure [Right] O2 Saturation 100 100 96 03/26/22 03/26/22 03/26/22 11:03 12:23 13:24 Temperature 36.4 C L 36.4 C L 37.1 C Heart Rate Heart Rate [ 73 91 83 Brachial] Heart Rate [ Monitoring electrodes] Respiratory 16 17 16 Rate Blood Pressure 137/67 H 137/67 H 133/73 H [Left Brachial artery] Blood Pressure [Right] O2 Saturation 98 98 98 03/26/22 03/26/22 03/26/22 13:57 14:04 14:19 Temperature 37 C 37.0 C 36.7 C Heart Rate Heart Rate [ 83 83 98 Brachial] Heart Rate [ Monitoring electrodes] Respiratory 16 Rate Blood Pressure 133/54 H 133/54 H 117/59 L [Left Brachial artery] Blood Pressure [Right] O2 Saturation 97 97 98 03/26/22 03/26/22 15:22 16:43 Temperature 36.8 C 37.1 C Heart Rate Heart Rate [ 88 76 Brachial] Heart Rate [ Monitoring electrodes] Respiratory 15 20 Rate Blood Pressure [Left Brachial artery] Blood Pressure 135/69 H 131/62 H [Right] O2 Saturation 99 99 Oxygen O2 Source Room air I&O (Last 24 Hrs): Intake and Output Totals x24h 03/24/22 03/25/22 03/26/22 23:59 23:59 23:59 Intake Total 4737.500 950 Output Total 626 Balance 4111.500 950 General: Alert, Oriented x3 HEENT: Mucous membr. moist/pink Neck: Supple, No JVD Neuro: Alert, Non Focal, Other ([place]) Cardiovascular: Regular rate (has a syst murmur) Respiratory: No respiratory distress Abdomen: Normal bowel sounds, Soft, No tenderness Extremities: No clubbing, No edema, No tenderness/swelling - Results Results: Laboratory Results WBC 7.1 x10^3/uL (4.8-10.8) 03/26/22 04:02 RBC 2.18 10^6/uL (4.70-6.10) L 03/26/22 04:02 Hgb 7.1 g/dL (14.0-18.0) L 03/26/22 04:02 Hct 22.1 % (42.0-52.0) L 03/26/22 04:02 MCV 101.4 fL (80.0-94.0) H 03/26/22 04:02 MCH 32.6 pg (27.0-31.0) H 03/26/22 04:02 MCHC 32.1 g/dL (32.0-36.0) 03/26/22 04:02 RDW 13.5 % (12.0-15.0) 03/26/22 04:02 Plt Count 158 10^3/uL (130-450) 03/26/22 04:02 MPV 9.4 fL (7.4-11.4) 03/26/22 04:02 Neut # (Auto) 9.9 10^3/uL (1.5-6.6) H 03/24/22 19:09 Lymph # (Auto) 2.5 10^3/uL (1.5-3.5) 03/24/22 19:09 [place] # (Auto) 0.7 10^3/uL (0.0-1.0) 03/24/22 19:09 Eos # (Auto) 0.0 10^3/uL (0.0-0.7) 03/24/22 19:09 Baso # (Auto) 0.0 10^3/uL (0.0-0.1) 03/24/22 19:09 Absolute Nucleated RBC 0.00 x10^3/uL 03/24/22 19:09 Nucleated RBC % 0.0 /100WBC 03/24/22 19:09 Sodium 137 mmol/L (135-145) 03/26/22 04:02 Potassium 4.4 mmol/L (3.5-5.0) 03/26/22 04:02 Chloride 108 mmol/L (101-111) 03/26/22 04:02 Carbon Dioxide 24 mmol/L (21-32) 03/26/22 04:02 Anion Gap 5.0 (6-13) L 03/26/22 04:02 BUN 24 mg/dL (6-20) H 03/26/22 04:02 Creatinine 0.6 mg/dL (0.6-1.2) 03/26/22 04:02 Estimated GFR (MDRD) 127 (>89) 03/26/22 04:02 Glucose 105 mg/dL (70-100) H 03/26/22 04:02 Calcium 8.1 mg/dL (8.5-10.3) L 03/26/22 04:02 Magnesium 2.0 mg/dL (1.7-2.8) 03/24/22 19:09 Total Bilirubin 0.5 mg/dL (0.2-1.0) 03/24/22 19:09 AST 15 IU/L (10-42) 03/24/22 19:09 ALT 20 IU/L (10-60) 03/24/22 19:09 Alkaline Phosphatase 77 IU/L (42-121) 03/24/22 19:09 Troponin I High Sens 12.5 ng/L (2.3-19.7) 03/24/22 19:09 B-Natriuretic Peptide 110 pg/mL (5-100) H 03/24/22 19:09 Total Protein 5.8 g/dL (6.7-8.2) L 03/24/22 19:09 Albumin 3.3 g/dL (3.2-5.5) 03/24/22 19:09 Globulin 2.5 g/dL (2.1-4.2) 03/24/22 19:09 Albumin/Globulin Ratio 1.3 (1.0-2.2) 03/24/22 19:09 Lipase 36 U/L (22-51) 03/24/22 19:09 Nasal Adenovirus (PCR) NOT DETECTED 03/25/22 01:39 Nasal B. parapertussis DNA (PCR) NOT DETECTED 03/25/22 01:39 Nasal Coronavir 229E PCR NOT DETECTED 03/25/22 01:39 Nasal Coronavir HKU1 PCR NOT DETECTED 03/25/22 01:39 Nasal Coronavir NL63 PCR NOT DETECTED 03/25/22 01:39 Nasal Coronavir OC43 PCR NOT DETECTED 03/25/22 01:39 Nasal Enterovir/Rhinovir PCR NOT DETECTED 03/25/22 01:39 Nasal Influenza B PCR NOT DETECTED 03/25/22 01:39 Nasal Influenza A PCR NOT DETECTED 03/25/22 01:39 Nasal Parainfluen 1 PCR NOT DETECTED 03/25/22 01:39 Nasal Parainfluen 2 PCR NOT DETECTED 03/25/22 01:39 Nasal Parainfluen 3 PCR NOT DETECTED 03/25/22 01:39 Nasal Parainfluen 4 PCR NOT DETECTED 03/25/22 01:39 Nasal RSV (PCR) NOT DETECTED 03/25/22 01:39 Nasal B.pertussis DNA PCR NOT DETECTED 03/25/22 01:39 Nasal C.pneumoniae (PCR) NOT DETECTED 03/25/22 01:39 Edward Human Metapneumo PCR NOT DETECTED 03/25/22 01:39 Nasal M.pneumoniae (PCR) NOT DETECTED 03/25/22 01:39 Nasal SARS-CoV-2 (PCR) NOT DETECTED 03/25/22 01:39 Stl Occult Blood (IFOB) POSITIVE (NEGATIVE) A 03/24/22 22:08 Blood Type A POSITIVE 03/24/22 22:15 Antibody Screen NEGATIVE 03/24/22 22:15 Crossmatch IS Only See Detail 03/24/22 22:15 - Procedures Procedures: Procedures ENDO RECTUM POLYPECTOMY (01/24/13)
[2022-03-26] MEDS ORDERED: ALBUTEROL NEB 2.5 MG/3 ML INH PRN (19:00)
[2022-03-26] MEDS ORDERED: [UNRECOGNIZED DRUG - OTHER] PO SCH (21:00)
[2022-03-26] MEDS ORDERED: FLUTICASONE PROPION PO SCH (21:00)
[2022-03-27 05:28] LABS: HCT - HEMATOCRIT 28.1 % (42.0-52.0); HGB - HEMOGLOBIN 9.4 g/dL (14.0-18.0); MEAN CORPUSCULAR HEMOGLOBIN 32.4 pg (27.0-31.0); MEAN CORPUSCULAR HGB CONC 33.5 g/dL (32.0-36.0); MEAN CORPUSCULAR VOLUME 96.9 fL (80.0-94.0); MEAN PLATELET VOLUME 9.7 fL (7.4-11.4); RED BLOOD COUNT 2.9 10^6/uL (4.70-6.10); RED CELL DISTRIBUTION WIDTH 15.1 % (12.0-15.0); WHITE BLOOD COUNT 8.1 x10^3/uL (4.8-10.8)
[2022-03-27] MEDS: SODIUM CHLORIDE FLUSH 0.9% 10 ML SYRINGE IVP SCH ×2 (05:28→09:37)
[2022-03-27] MEDS: PANTOPRAZOLE 40 MG TABLET PO SCH (05:33)
[2022-03-27] MEDS ORDERED: BUDESONIDE 0.5 MG/2 ML NEB INH SCH (07:00)
[2022-03-27] MEDS ORDERED: FORMOTEROL FUMARATE NEB 20 MCG/2 ML INH SCH (07:00)
[2022-03-27] MEDS ORDERED: MULTIVITAMIN TABLET PO SCH (08:00)
[2022-03-27] MEDS ORDERED: CHOLECALCIFEROL 25 MCG TABLET PO SCH (09:00)
[2022-03-27] MEDS ORDERED: TAMSULOSIN 0.4 MG CAPSULE PO SCH (09:00)
[2022-03-27] MEDS ORDERED: METOPROLOL SUCCINATE 50 MG TABLET PO SCH (09:00)
[2022-03-27] MEDS ORDERED: FINASTERIDE 5 MG TABLET PO SCH (09:00)
[2022-03-27] MEDS ORDERED: OMEGA-3 ACID ETHYL ESTERS 1 GM CAPSULE PO SCH (09:00)
[2022-03-27] MEDS: FORMOTEROL FUMARATE NEB 20 MCG/2 ML INH SCH (09:01)
[2022-03-27] MEDS: BUDESONIDE 0.5 MG/2 ML NEB INH SCH (09:01)
--- NOTE | 2022-03-27 11:44 | PROVIDER PROGRESS NOTE ---
Subjective - General Admit Date: 03/25/22 Procedure Date: 03/26/22 Post Op Days: 1 Procedure Performed: EGD 03/25, CE 03/26 - Review of Systems Pulmonary: negative: Shortness of breath Cardiovascular: negative: Chest pain Gastrointestinal: positive: Melena. negative: Nausea, Vomiting, Abdominal pain All Other Systems: positive: Reviewed and negative - Other Other Information/Narrative: Patient states he is feeling well. Tolerating diet. No n/v. Feeling much stronger after blood transfusion. No BM's since colonoscopy yesterday. No acute events overnight. He would like to go home. Objective - Patient Data Reviewed Vital Signs: Yes Vital Signs: Vital Signs x48h Temp Pulse Pulse Resp BP Pulse Ox 03/27/22 09:04 52 L 16 03/27/22 07:42 36.9 C 97 18 151/81 H 96 03/27/22 04:51 37.0 C 83 20 139/75 H 96 Weight: Weight 03/25/22 03/26/22 03/27/22 23:59 23:59 23:59 Weight (kg) 68 kg 69 kg 70.5 kg Intake & Output: Intake and Output Totals x24h 03/25/22 03/26/22 03/27/22 23:59 23:59 23:59 Intake Total 4737.500 1430 730 Output Total 626 Balance 4111.500 1430 730 - Lab Results Lab Results: 03/27/22 04:40 03/26/22 04:02 Other Lab Results: Lab Results x24hrs 03/27/22 03/26/22 03/24/22 Range/Units 04:40 17:02 22:15 WBC 8.1 (4.8-10.8) x10^3/uL RBC 2.90 L (4.70-6.10) 10^6/uL Hgb 9.4 L 10.0 L (14.0-18.0) g/dL Hct 28.1 L (42.0-52.0) % MCV 96.9 H (80.0-94.0) fL MCH 32.4 H (27.0-31.0) pg MCHC 33.5 (32.0-36.0) g/dL RDW 15.1 H (12.0-15.0) % Plt Count 162 (130-450) 10^3/uL MPV 9.7 (7.4-11.4) fL Blood Type A POSITIVE Antibody Screen NEGATIVE Crossmatch IS Only See Detail - Current Medications Current Medications: Current Medications Generic Name Dose Route Start Last Admin Trade Name [place] PRN Reason Stop Dose Admin Budesonide 0.5 mg 03/26/22 07:00 03/27/22 09:01 Budesonide 0.5 Mg/2 Ml Neb INH 0.5 mg RTBID TEO Administration Cholecalciferol 25 mcg 03/27/22 09:00 03/27/22 09:36 Cholecalciferol 25 Mcg Tablet PO 25 mcg DAILY TEO Administration Finasteride 5 mg 03/27/22 09:00 03/27/22 09:36 Finasteride 5 Mg Tablet PO 5 mg DAILY TEO Administration Formoterol Fumarate 20 mcg 03/26/22 07:00 03/27/22 09:01 Formoterol Fumarate Neb 20 Mcg/2 Ml INH 20 mcg RTBID TEO Administration Metoprolol Succinate 50 mg 03/27/22 09:00 03/27/22 09:36 Metoprolol Succinate 50 Mg Tablet PO 50 mg DAILY TEO Administration Multivitamins 1 tab 03/27/22 08:00 03/27/22 09:36 Multivitamin Tablet PO 1 tab DAILYWM TEO Administration [id number] Ethyl Esters 2 gm 03/27/22 09:00 03/27/22 09:36 [place]-3 Acid Ethyl Esters 1 Gm Capsule PO 2 gm BID TEO Administration Pantoprazole Sodium 40 mg 03/26/22 07:00 03/27/22 05:33 Pantoprazole 40 Mg Tablet PO 40 mg QDAC TEO Administration Sodium Chloride 10 ml 03/25/22 09:00 03/27/22 09:37 Sodium Chloride Flush 0.9% 10 Ml Syringe IVP 10 ml 0100,0900,1700 TEO Administration Tamsulosin HCl 0.4 mg 03/27/22 09:00 03/27/22 09:36 Tamsulosin 0.4 Mg Capsule PO 0.4 mg DAILY TEO Administration - Physical Exam General Appearance: positive: No acute distress, Alert Eyes Bilateral: positive: PERRL, EOMI ENT: positive: No signs of dehydration Neck: positive: Trachea midline Respiratory: positive: No respiratory distress Cardiovascular: positive: Regular rate & rhythm. negative: No murmur Abdomen: positive: Non-tender, No distention. negative: Guarding, Rebound Skin: positive: Color nml, No rash, Warm, Dry Extremities: positive: Non-tender, Full ROM Neurologic/Psychiatric: positive: Oriented x3 Impression/Plan - Problem List Problem List: 86 y/o M with: 1. Acute blood loss anemia -Hgb 9.4 this AM -tranfused 2 units pRBC's 03/26, continue to follow hgb. -patient HD stable, asymptomatic -if hgb stable this PM, ok to discharge from surgery standpoint 2. GI bleed, likely diverticular bleed - EGD 03/25 was unremarkable. Colonoscopy this AM demonstrated old clot and melanotic liquid stool throughout colon. No active bleeding, or masses identified. Three small polyps removed. Diverticulosis throughout the colon, most likely source of bleeding - recommend continued PPI given remote h/o PUD - adat to regular this AM 3. BPH, HTN, a fib, COPD - as per primary team Patient may follow up with me prn. Thank you for consulting me in the care of this patient. I will continue to follow while inpatient. If he stays overnight, Dr. Farnsworth will be assuming the care of surgical patients tomorrow AM.
[2022-03-27] MEDS ORDERED: PRENATAL VITAMIN TABLET PO SCH (14:00)
[2022-03-27 17:34] VITALS: BP 147/74
--- NOTE | 2022-03-27 17:43 | Discharge Plan ---
Discharge Plan Problem Reviewed?: Yes Disposition: Home, Self Care Condition: Stable Prescriptions: Ferric Citrate [Auryxia] 210 mg PO DAILY #30 tablet Diet: Regular (Hi fiber diet, low in salt) Activity Restrictions: Activity as Tolerated Shower Restrictions: No Driving Restrictions: Yes Assistance Devices: Walker Instruction Topics: Bleeding Gastrointestinal Ch Health Concerns: You were hospitalized because of having bleeding coming from your gastrointestinal tract. Your hemoglobin dropped and you needed transfusion of 2 units of blood. You underwent upper endoscopy and lower colonoscopy to look for the source. The findings were that of diverticuli where the bleeding was probably coming from in the colon. The pathology is back from both biopsies and show 1) no H. pylori bacteria in your stomach (which can cause ulcers), and 2) the colon polyps that were biopsied were benign. Please do not take any medicines that will thin your blood or make you bleed, like aspirin, ibuprofen, Motrin, Naprosyn, Plavix. Also take no anticoagulants like Coumadin or Eliquis. Tylenol is not in that class of medicines and is fine to take for pain control. You are being discharged home today and advised to take (at least) 1 month of oral iron replacement, to build up your blood count. This prescription was electronically sent to your [facility] pharmacy in [place]. You may resume your inhalers, your stool softener, fish oil, vitamin D, multivitamin, and the prostate medicines: finasteride and tamsulosin and OK to take the Metoprolol. In 1 week you may resume your Losartan and Amlodipine also. You should see your primary care provider in the next 1 to 2 weeks for a hospital follow-up visit. Your blood pressure needs to be checked and a blood test done to check if you are still anemic. Plan of Treatment: As above. Care Goals: Improvement in symptoms and stabilization are the goals. Assessment: Patient and understand and are agreeable with the plan. Additional Instructions or Follow Up instructions: If you have new or worsening symptoms, call your Primary Care Provider for advice, or come to the ER. No Smoking: If you smoke, Please STOP! Call for help. Follow-up with: Gris Isidro PA [Primary Care Provider] -
--- NOTE | 2022-03-27 17:52 | DISCHARGE SUMMARY ---
"Discharge Summary Admit Date: 03/25/22 Discharge Date: 03/27/22 Discharging Provider: Kelly Sheppard MD Primary Care Provider: HARITHA Mary Condition at Discharge: Stable Discharge Disposition: 01 Home, Self Care - HPI History of Present Illness: This is an 86-year-old white male with a history of hypertension, COPD, A. fib, probably paroxysmal, and duodenal ulcer in the past as well as a GI bleed in his colon, he thinks. The patient drinks 1-2 glasses of wine per day and does use NSAIDs. Patient presented with complaints of near syncope and shortness of breath with activity for a few days, which is not his usual. In the ED he was found to have black stool which is heme positive. Consultation with general surgery was obtained and he has already gone to the OT and undergone an EGD. This found no abnormalities, biopsies were taken. The general surgeon gave me t he summary. His baseline hemoglobin is 14, first hemoglobin here was 10 and it has decreased now to 8 after receiving just 1 L of NS while in the ED. Blood pressure on presentation was hypotensive at 93/51. Heart rate has been in the 90s to 120s. The general surgeon described that he was in paroxysmal A. fib during the EGD. The patient is being admitted to the Hospitalist team for further management of an acute GI bleed causing anemia and hypotension. We discussed his CODE BLUE wishes and he wants to be a full code. - CONSULTS | PROCEDURES Procedures: EGD Colonoscopy - HOSPITAL COURSE Hospital Course: (1) Diverticular hemorrhage - K57.31 He underwent an EGD that was normal, then bowel prepped and had a colonoscopy. That showed no active bleeding but blood clots were seen near diverticuli. Recommend not using any anticoagulants or antiplatelet agents for a minimum of a month. (2) Anemia from GI blood loss We followed H/H closely. His Hgb dropped from 9.9 to 7.1 on Day #3, and a blood transfusion was ordered. Hgb was 10.1 at discharge. He was sent home on new oral iron replacement. (3) Hypotension From GI blood loss. It improved with iv fluids plus holding his HTN meds. (4) Paroxysmal A-fib We continued meds for rate control. He should not be on any anticoagulants for at least 1 month, due to this GI bleeding. (5) Heart murmur He has a loud systolic murmur and does not know what the findings were when Echo done in [place] earlier this year. Per physical exam, it sounds like . There was no indication to order an Echo this admission. (6) COPD without exacerbation We ordered his usual inhalers (7) BPH Home meds were on hold, may be resumed after discharge. - ALLERGIES Allergies/Adverse Reactions: Allergies Allergy/AdvReac Type Severity Reaction Status Date / Time No Known Drug Allergies Allergy Verified 03/24/22 18:48 - MEDICATIONS Home Medications: Ambulatory Orders Medication Instructions Recorded Confirmed Multivitamin [Multivitamins] 1 each PO DAILY 01/21/13 03/25/22 [place]-3 Fatty Acids [Fish Oil] 500 mg PO DAILY 01/21/13 03/25/22 Vit C/Jayce AC/Lut/Copper/Znox 1 each PO DAILY 01/21/13 03/25/22 [Preservision Lutein Softgel] Losartan [Cozaar] 100 mg PO DAILY 01/24/13 03/25/22 Amlodipine Besylate 1 tab PO DAILY 02/17/20 03/25/22 Tamsulosin [Flomax] 0.4 mg PO DAILY #20 capsule 02/17/20 03/25/22 Albuterol Sulf [Ventolin Hfa 2 puffs PO QID PRN 03/25/22 03/25/22 Inhaler] Cholecalciferol [Vitamin D3] 1 tab PO DAILY 03/25/22 03/25/22 Finasteride [Proscar] 1 tab PO DAILY 03/25/22 03/25/22 Fluticasone Propion/Salmeterol 1 puffs PO BID 03/25/22 03/25/22 [Fluticasone-Salmeterol 250-50] Metoprolol Succinate [Toprol Xl] 1 tab PO DAILY 03/25/22 03/25/22 Ferric Citrate [Auryxia] 210 mg PO DAILY #30 tablet 03/27/22 - PHYSICAL EXAM AT DISCHARGE General Appearance: positive: No acute distress, Alert, Other (Appears ired) Eyes Bilateral: positive: Normal inspection, EOMI ENT: positive: ENT inspection nml, Other ([place]) Neck: positive: Nml inspection, No JVD Respiratory: positive: No respiratory distress, Breath sounds nml Cardiovascular: positive: No murmur, Irregularly irregular Abdomen: positive: Non-tender, Nml bowel sounds, No distention Skin: positive: Warm, Dry, Pallor Extremities: positive: Non-tender, No pedal edema Neurologic/Psychiatric: positive: Oriented x3, Motor nml, Other ([place]. Poor memory.) - LABS Result Diagrams: 03/27/22 16:09 03/26/22 04:02 - DIAGNOSTIC IMAGING Diagnostic Imaging Results: Final report reviewed - FOLLOW UP Follow Up: See PCP in 1-2 weeks for a hospital follow-up visit. - TIME SPENT Time Spent in Discharge (Minutes): 45"
--- NOTE | 2022-03-28 15:45 | ANESTHESIA ---
Pre-Anesthesia VS, & Labs - Diagnosis Anemia, GI Bleed - Procedure Colonoscopy Vital Signs: Temp Pulse Resp BP Pulse Ox O2 Flow Rate 36.8 C 90 16 147/74 H 97 03/27/22 17:33 03/27/22 17:33 03/27/22 17:33 03/27/22 17:33 03/27/22 17:33 Height: 5 ft 6 in Weight (kg): 70.5 kg Body Mass Index: 25.0 BMI Classification: Overweight - Lab Results Current Lab Results: Laboratory Tests 03/27/22 16:09: Hgb 10.1 L 03/27/22 04:40: WBC 8.1, RBC 2.90 L, Hgb 9.4 L, Hct 28.1 L, MCV 96.9 H, MCH 32.4 H, MCHC 33.5, RDW 15.1 H, Plt Count 162, MPV 9.7 03/26/22 17:02: Hgb 10.0 L 03/26/22 04:02: Sodium 137, Potassium 4.4, Chloride 108, Carbon Dioxide 24, Anion Gap 5.0 L, BUN 24 H, Creatinine 0.6, Estimated GFR (MDRD) 127, Glucose 105 H, Calcium 8.1 L 03/26/22 04:02: WBC 7.1, RBC 2.18 L, Hgb 7.1 L, Hct 22.1 L, MCV 101.4 H, MCH 32.6 H, MCHC 32.1, RDW 13.5, Plt Count 158, MPV 9.4 03/25/22 16:41: Hgb 8.1 L 03/25/22 10:51: Hgb 8.2 L 03/25/22 05:45: Hgb 7.9 L, Hct 24.3 L 03/25/22 00:25: Hgb 8.8 L, Hct 27.4 L 03/24/22 22:15: Blood Type A POSITIVE, Antibody Screen NEGATIVE, Crossmatch IS Only See Detail 03/24/22 19:09: B-Natriuretic Peptide 110 H 03/24/22 19:09: Troponin I High Sens 12.5 03/24/22 19:09: Sodium 131 L, Potassium 5.2 H, Chloride 101, Carbon Dioxide 22, Anion Gap 8.0, BUN 63 H, Creatinine 0.8, Estimated GFR (MDRD) 91, Glucose 145 H, Calcium 8.4 L, Magnesium 2.0, Total Bilirubin 0.5, AST 15, ALT 20, Alkaline Phosphatase 77, Total Protein 5.8 L, Albumin 3.3, Globulin 2.5, Albumin/Globulin Ratio 1.3, Lipase 36 03/24/22 19:09: WBC 13.2 H, RBC 3.01 L, Hgb 9.9 L, Hct 30.4 L, MCV 101.0 H, MCH 32.9 H, MCHC 32.6, RDW 13.1, Plt Count 202, MPV 9.1, Neut # (Auto) 9.9 H, Lymph # (Auto) 2.5, [place] # (Auto) 0.7, Eos # (Auto) 0.0, Baso # (Auto) 0.0, Absolute Nucleated RBC 0.00, Nucleated RBC % 0.0 Lab results reviewed: Yes Fish Bones: 03/27/22 16:09 03/26/22 04:02 Home Medications and Allergies Home Medications: Ambulatory Orders Albuterol Sulf [Ventolin Hfa Inhaler] 2 puffs PO QID PRN 03/25/22 Cholecalciferol [Vitamin D3] 1 tab PO DAILY 03/25/22 Finasteride [Proscar] 1 tab PO DAILY 03/25/22 Fluticasone Propion/Salmeterol [Fluticasone-Salmeterol 250-50] 1 puffs PO BID 03/25/22 Metoprolol Succinate [Toprol Xl] 1 tab PO DAILY 03/25/22 Multivitamin [Multivitamins] 1 each PO DAILY 01/21/13 [place]-3 Fatty Acids [Fish Oil] 500 mg PO DAILY 01/21/13 Vit C/Jayce AC/Lut/Copper/Znox [Preservision Lutein Softgel] 1 each PO DAILY 01/21/13 Losartan [Cozaar] 100 mg PO DAILY 01/24/13 Amlodipine Besylate 1 tab PO DAILY 02/17/20 Albuterol Sulf [Ventolin Hfa Inhaler] 2 puffs PO QID PRN 03/25/22 Cholecalciferol [Vitamin D3] 1 tab PO DAILY 03/25/22 Finasteride [Proscar] 1 tab PO DAILY 03/25/22 Fluticasone Propion/Salmeterol [Fluticasone-Salmeterol 250-50] 1 puffs PO BID 03/25/22 Metoprolol Succinate [Toprol Xl] 1 tab PO DAILY 03/25/22 Allergies/Adverse Reactions: Allergies Allergy/AdvReac Type Severity Reaction Status Date / Time No Known Drug Allergies Allergy Verified 03/24/22 18:48 Anes History & Medical History - Anesthetic History Anesthesia Complications: reports: No previous complications - Medical History Cardiovascular: reports: Hypertension Pulmonary: reports: COPD Gastrointestinal: reports: GERD, Ulcers, Colon polyps, Hepatitis Urinary: reports: Benign prostate hypertrophy Neuro: reports: None Musculoskeletal: reports: Osteoarthritis Endocrine/Autoimmune: reports: None Smoking Status: Former smoker - Surgical History General: reports: EGD, Colonoscopy Eyes Ears Nose Throat (EENT): reports: Cataracts Urologic: reports: Prostatic surgery Exam General: Alert, Oriented x3, Cooperative, No acute distress Dental: WNL Mouth Openin Fingerbreadth Neck Mobility: Normal Mallampati classification: II Thyromental Distance: 4-6 cm Mental/Cognitive Status: Alert/Oriented X3, Normal for patient Plan Anesthesia Type: General, IV Regional Consent for Procedure(s) Verified and Reviewed: Yes Code Status: Attempt Resuscitation ASA classification: 3-Severe systemic disease Is this case an emergency?: Yes
== END 2022-03-27 18:21 | disposition home or self-care (01) | DRG 378 ==
LOC: ED 17:21 → MS3 03-25 06:55
PROVIDERS: ADMIT Surgery; ATTEND Internal Medicine
PROC: 0DB78ZX Excision of Stomach, Pylorus, Via Natural or Artificial Opening Endoscopic, Diagnostic (ICD-10-PCS; principal; 2022-03-25 07:30)
PROC: 0DBK8ZZ Excision of Ascending Colon, Via Natural or Artificial Opening Endoscopic (ICD-10-PCS; 2022-03-26)
PROC: 0DBN8ZZ Excision of Sigmoid Colon, Via Natural or Artificial Opening Endoscopic (ICD-10-PCS; 2022-03-26)
PROC: 0DBM8ZZ Excision of Descending Colon, Via Natural or Artificial Opening Endoscopic (ICD-10-PCS; 2022-03-26)
PROC: 30233N1 Transfusion of Nonautologous Red Blood Cells into Peripheral Vein, Percutaneous Approach (ICD-10-PCS; 2022-03-26)
DX: K92.1 Melena (principal); Z20.822 Contact with and (suspected) exposure to COVID-19; K57.31 Diverticulosis of large intestine without perforation or abscess with bleeding; D62 Acute posthemorrhagic anemia; I95.9 Hypotension, unspecified; I48.0 Paroxysmal atrial fibrillation; R01.1 Cardiac murmur, unspecified; J44.9 Chronic obstructive pulmonary disease, unspecified; N40.0 Benign prostatic hyperplasia without lower urinary tract symptoms; I10 Essential (primary) hypertension; D12.2 Benign neoplasm of ascending colon; D12.4 Benign neoplasm of descending colon; K64.8 Other hemorrhoids; K63.5 Polyp of colon; Z87.11 Personal history of peptic ulcer disease; Z87.891 Personal history of nicotine dependence; Z79.82 Long term (current) use of aspirin
CPT/HCPCS: 36415; 71045; 80048; 80053; 82274; 83690; 83735; 83880; 84484; 85014; 85018; 85025; 85027; 86850; 86900; 86901; 86920; 87633; 93005; 94640; 96361; 96374; 96376; 99284; 99285; A9270; J7120; J7626; P9016

== ENCOUNTER 2022-04-08 11:36 | Outpatient (CLI) | payer MEDICARE ==
[2022-04-08 18:38] LABS: BASOPHILS # (AUTO) 0.1 10^3/uL (0.0-0.1); BASOPHILS % (AUTO) 0.7 %; EOSINOPHILS # (AUTO) 0.1 10^3/uL (0.0-0.7); EOSINOPHILS % (AUTO) 1.4 %; HCT - HEMATOCRIT 37.9 % (42.0-52.0); LYMPHOCYTES # (AUTO) 2.8 10^3/uL (1.5-3.5); LYMPHOCYTES % (AUTO) 32.1 %; MEAN CORPUSCULAR HEMOGLOBIN 31.7 pg (27.0-31.0); MEAN CORPUSCULAR HGB CONC 31.7 g/dL (32.0-36.0); MEAN PLATELET VOLUME 9.4 fL (7.4-11.4); MONOCYTES # (AUTO) 0.8 10^3/uL (0.0-1.0); MONOCYTES % (AUTO) 8.9 %; NEUTROPHILS # (AUTO) 4.9 10^3/uL (1.5-6.6); NEUTROPHILS % (AUTO) 56.6 %; PLT - PLATELET COUNT 328 10^3/uL (130-450); RED BLOOD COUNT 3.79 10^6/uL (4.70-6.10); RED CELL DISTRIBUTION WIDTH 14.6 % (12.0-15.0); WHITE BLOOD COUNT 8.7 x10^3/uL (4.8-10.8)
[2022-04-08 18:59] LABS: % IRON SATURATION 82 % (20-50); IRON 316 ug/dL (45-182); TOTAL IRON BINDING CAPACITY 384 ug/dL (250-450); TRANSFERRIN 274 mg/dL (180-329)
== END 2022-04-08 11:37 | disposition home or self-care (01) ==
LOC: LAB.N 11:36
PROVIDERS: ATTEND Physician Assistant
DX: D64.9 Anemia, unspecified (principal); K92.2 Gastrointestinal hemorrhage, unspecified
CPT/HCPCS: 36415; 82728; 83540; 84466; 85025

== ENCOUNTER 2022-05-23 07:49 | Outpatient (CLI) | payer MEDICARE ==
[2022-05-23 12:14] LABS: BASOPHILS # (AUTO) 0.1 10^3/uL (0.0-0.1); BASOPHILS % (AUTO) 0.6 %; EOSINOPHILS # (AUTO) 0.2 10^3/uL (0.0-0.7); EOSINOPHILS % (AUTO) 2.3 %; HCT - HEMATOCRIT 44.9 % (42.0-52.0); HGB - HEMOGLOBIN 14.3 g/dL (14.0-18.0); LYMPHOCYTES # (AUTO) 3.1 10^3/uL (1.5-3.5); LYMPHOCYTES % (AUTO) 39.7 %; MEAN CORPUSCULAR HEMOGLOBIN 31.2 pg (27.0-31.0); MEAN CORPUSCULAR HGB CONC 31.8 g/dL (32.0-36.0); MEAN CORPUSCULAR VOLUME 97.8 fL (80.0-94.0); MEAN PLATELET VOLUME 9.3 fL (7.4-11.4); MONOCYTES # (AUTO) 0.7 10^3/uL (0.0-1.0); MONOCYTES % (AUTO) 8.6 %; NEUTROPHILS # (AUTO) 3.7 10^3/uL (1.5-6.6); NEUTROPHILS % (AUTO) 48.4 %; PLT - PLATELET COUNT 276 10^3/uL (130-450); RED BLOOD COUNT 4.59 10^6/uL (4.70-6.10); RED CELL DISTRIBUTION WIDTH 12.9 % (12.0-15.0); WHITE BLOOD COUNT 7.7 x10^3/uL (4.8-10.8)
[2022-05-23 13:17] LABS: ALBUMIN 3.9 g/dL (3.2-5.5); BILIRUBIN,TOTAL 0.4 mg/dL (0.2-1.0); CALCIUM 9.3 mg/dL (8.5-10.3); CREATININE 0.8 mg/dL (0.6-1.2); POTASSIUM 4.6 mmol/L (3.5-5.0); TOTAL PROTEIN 7.9 g/dL (6.7-8.2)
== END 2022-05-23 07:50 | disposition home or self-care (01) ==
LOC: LAB.N 07:49
PROVIDERS: ATTEND Physician Assistant
DX: K92.2 Gastrointestinal hemorrhage, unspecified (principal); D64.9 Anemia, unspecified
CPT/HCPCS: 36415; 80053; 82728; 83540; 84466; 85025

== ENCOUNTER 2022-06-11 11:29 | Outpatient (CLI) | payer MEDICARE ==
[2022-06-11 12:40] LABS: ALBUMIN 4.1 g/dL (3.2-5.5); ALBUMIN/GLOBULIN RATIO 1.2 (1.0-2.2); BILIRUBIN,TOTAL 0.7 mg/dL (0.2-1.0); CALCIUM 9.1 mg/dL (8.5-10.3); CREATININE 0.7 mg/dL (0.6-1.2); POTASSIUM 4.4 mmol/L (3.5-5.0); TOTAL PROTEIN 7.6 g/dL (6.7-8.2)
--- NOTE | 2022-06-11 13:33 | XRAY Report ---
PROCEDURE: Lumbar Spine Complete INDICATIONS: BACK PAIN, LUMBAR TECHNIQUE: 4 views of the lumbar spine were acquired. COMPARISON: None. FINDINGS: Bones: 5 [id number] vertebrae are present. There is leftward scoliotic curvature with apex at L3. There is trace retrolisthesis of L2 on L3, L3 on L4 or, L5 on S1 and trace anterolisthesis of L4 on L5. Multilevel severe disc space narrowing is present. Severe foraminal narrowing is present at L4 -5 and L5-S1. Multilevel anterior osteophytes are present. No vertebral body compression fractures. No suspicious bony lesions. Soft tissues: Overlying bowel gas pattern is normal. No suspicious soft tissue calcifications. 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 Reviewed by: Alba Romero MD on 06/11/2022 1:32 PM PST Approved by: Alba Romero MD on 06/11/2022 1:32 PM [facility] Station ID: [id number]
== END 2022-06-11 11:30 | disposition home or self-care (01) ==
LOC: DI 11:29
PROVIDERS: ATTEND Physician Assistant
DX: M54.32 Sciatica, left side (principal); M47.816 Spondylosis without myelopathy or radiculopathy, lumbar region; M47.817 Spondylosis without myelopathy or radiculopathy, lumbosacral region; R74.8 Abnormal levels of other serum enzymes
CPT/HCPCS: 36415; 80053; 82977

== ENCOUNTER 2022-07-01 15:25 | Outpatient (CLI) | payer MEDICARE ==
[2022-07-01 18:17] LABS: ALBUMIN 4.1 g/dL (3.2-5.5); ALBUMIN/GLOBULIN RATIO 1.1 (1.0-2.2); BILIRUBIN,TOTAL 0.7 mg/dL (0.2-1.0); CALCIUM 10.1 mg/dL (8.5-10.3); CREATININE 0.7 mg/dL (0.6-1.2); POTASSIUM 4.4 mmol/L (3.5-5.0); TOTAL PROTEIN 7.8 g/dL (6.7-8.2)
[2022-07-01 18:35] LABS: THYROID STIMULATING HORMONE 1.03 uIU/mL (0.34-5.60)
[2022-07-01 20:48] LABS: PSA FREE 36.35 ng/mL (0.16-2.81)
== END 2022-07-01 15:26 | disposition home or self-care (01) ==
LOC: LAB.N 15:25
PROVIDERS: ATTEND Physician Assistant
DX: N40.0 Benign prostatic hyperplasia without lower urinary tract symptoms (principal); R74.8 Abnormal levels of other serum enzymes
CPT/HCPCS: 36415; 80053; 82306; 83970; 84100; 84153; 84154; 84443

== ENCOUNTER 2022-07-02 22:15 | Emergency (ER) | payer MEDICARE ==
[2022-07-02 22:29] VITALS: BP 172/95
--- OUTSIDE RECORDS SUMMARY | 2022-07-02 22:43 | EXTERNAL MEDICAL SUMMARY RPT | Continuity of Care Document ---
:1935 Author Organization [facility] Address [address] [place] [address] Phone Care Team Providers Name Role Phone Mason Treadwell Unavailable Unavailable Allergies No information. Encounters No information. Functional Status No information. Immunizations No information. Medications date description facility 2022-06-28 00:00 Ciprofloxacin Hcl [facility] 2022-06-28 00:00 Metoprolol Succinate [facility] 2022-06-28 00:00 [facility] Problems date description facility 2022-06-26 10:37 Abnormal levels of other serum enzymes [facility] 2022-06-26 11:08 Abnormal levels of other serum enzymes [facility] 2022-06-28 17:47 [facility] 2022-06-28 18:02 [facility] Procedures date description facility 2022-06-26 00:00 Radionuclide bone scan of whole body [facility] Results/Labs test date author facility value unit interpret ation Result panel 1 (unknown) (no (unknown) (unknown) (no value) (units (unk nown) date) unknown) (unknown) (no (unknown) (unknown) 06/26/22 (units (unkno wn) date) unknown) (unknown) (no (unknown) (unknown) [id number] (units (unkno wn) date) unknown) (unknown) (no (unknown) (unknown) [address] [place] [address] (units (unknown) date) unknown) (unknown) (no (unknown) (unknown) 19:14. (units (unkno wn) date) unknown) (unknown) (no (unknown) (unknown) 06/18/2020, (units (unk nown) date) unknown) (unknown) (no (unknown) (unknown) Accession (units (unkn own) date) Number: unknown) [id number] (unknown) (no (unknown) (unknown) Age/Sex: 87 / M (units (unknown) date) Date of Service: unknown) (unknown) (no (unknown) (unknown) [place], [place] (units ( unknown) date) [id number] unknown) (unknown) (no (unknown) (unknown) Approved by: (units (u nknown) date) Saleem Rey M.D. unknown) on 06/26/2022 at 16:32 (unknown) (no (unknown) (unknown) Bladder is (units (unk nown) date) distended, unknown) partially obscure pelvis. (unknown) (no (unknown) (unknown) COMPARISON: (units (un known) date) [facility] unknown) [facility], CT, CT ABDOMEN PELVIS WITH CONTRAST, (unknown) (no (unknown) (unknown) : 1935 (units (unknown) date) Acct:[id number] unknown) (unknown) (no (unknown) (unknown) Delayed (units (unkno wn) date) whole-body unknown) scintigrams were obtained approximately 3-4 hours after (unknown) (no (unknown) (unknown) Dictated by: (units (u nknown) date) Saleem Rey M.D. unknown) on 06/26/2022 at 16:18 (unknown) (no (unknown) (unknown) FINDINGS: There (units (unknown) date) are multiple foci unknown) of abnormal uptake involving calvarium, (unknown) (no (unknown) (unknown) IMPRESSION: (units (un known) date) Extensive osseous unknown) metastatic disease. (unknown) (no (unknown) (unknown) INDICATIONS: (units (u nknown) date) ELEVATED ALKALINE unknown) PHOSPHATE (unknown) (no (unknown) (unknown) [facility] (units (unknown) date) unknown) (unknown) (no (unknown) (unknown) Loc: [facility] (units (unkn own) date) unknown) (unknown) (no (unknown) (unknown) Nuclear Medicine (units (unknown) date) Report unknown) (unknown) (no (unknown) (unknown) Ordering (units (unkno wn) date) Provider: unknown) Gris Isidro P.A-C (unknown) (no (unknown) (unknown) PROCEDURE: NM (units ( unknown) date) BONE SCAN WHOLE unknown) BODY (unknown) (no (unknown) (unknown) Patient: (units (unkno wn) date) Larry Campa E unknown) MR#: [id number] (unknown) (no (unknown) (unknown) Procedure: NM (units ( unknown) date) bone scan whole unknown) body (unknown) (no (unknown) (unknown) RADIOPHARMACEUTI (units (unknown) date) SIMON: 20.0 mCi unknown) Tc-99m MDP IV. (unknown) (no (unknown) (unknown) Signed (units (unkno wn) date) unknown) (unknown) (no (unknown) (unknown) TECHNIQUE: (units (unk nown) date) unknown) (unknown) (no (unknown) (unknown) bilaterally, and (units (unknown) date) proximal femurs, unknown) consistent with extensive osseous metastatic (unknown) (no (unknown) (unknown) cervical, (units (unkn own) date) unknown) (unknown) (no (unknown) (unknown) disease. (units (unkno wn) date) unknown) (unknown) (no (unknown) (unknown) feet. (units (unkno wn) date) unknown) (unknown) (no (unknown) (unknown) injection of (units (u nknown) date) radiotracer. unknown) Anterior and posterior views were acquired from (unknown) (no (unknown) (unknown) intravenous (units (un known) date) unknown) (unknown) (no (unknown) (unknown) pelvis (units (unkno wn) date) unknown) (unknown) (no (unknown) (unknown) thoracic and (units (u nknown) date) lumbar spine, unknown) sacrum, sternum, multiple ribs bilaterally, bony (unknown) (no (unknown) (unknown) vertex to (units (unkn own) date) unknown) Result panel 2 (unknown) (no (unknown) (unknown) (no value) (units (unk nown) date) unknown) (unknown) (no (unknown) (unknown) 06/28/22 17:47 (units (unknown) date) unknown) (unknown) (no (unknown) (unknown) 06/28/22 (units (unkno wn) date) [History unknown) Confirmed 06/28/22] (unknown) (no (unknown) (unknown) 06/28/22 (units (unkno wn) date) unknown) (unknown) (no (unknown) (unknown) 17:47 (units (unkno wn) date) unknown) (unknown) (no (unknown) (unknown) 18:03 (units (unkno wn) date) unknown) (unknown) (no (unknown) (unknown) [id number] (units (unkno wn) date) unknown) (unknown) (no (unknown) (unknown) 47 (units (unkno wn) date) unknown) (unknown) (no (unknown) (unknown) 7 (units (unkno wn) date) unknown) (unknown) (no (unknown) (unknown) Accompanied by: (units (unknown) date) unknown) (unknown) (no (unknown) (unknown) Age/Sex: 87 / M (units (unknown) date) Date of Service: unknown) (unknown) (no (unknown) (unknown) Allergies (units (unkn own) date) unknown) (unknown) (no (unknown) (unknown) [place] [facility] (units (unknown) date) Medicine unknown) (unknown) (no (unknown) (unknown) [place], [place] (units ( unknown) date) [id number] unknown) (unknown) (no (unknown) (unknown) Assessment + (units (u nknown) date) Plan unknown) (unknown) (no (unknown) (unknown) Attending Dr: (units ( unknown) date) 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 unknown) (unknown) (no (unknown) (unknown) Documented By: (units (unknown) date) Randall Reynoso unknown) PEDRO 06/28/22 1800 (unknown) (no (unknown) (unknown) Draft (units (unkno wn) date) unknown) (unknown) (no (unknown) (unknown) Height 5 ft 7 in (units (unknown) date) unknown) (unknown) (no (unknown) (unknown) Intake Note: (units (u nknown) date) unknown) (unknown) (no (unknown) (unknown) Intake performed (units (unknown) date) by: Mabel Luz unknown) (unknown) (no (unknown) (unknown) Intake (units (unkno wn) date) unknown) (unknown) (no (unknown) (unknown) Intake- Clincial (units (unknown) date) Staff unknown) (unknown) (no (unknown) (unknown) Loc: [facility] (units (unkno wn) date) unknown) (unknown) (no (unknown) (unknown) Medications (units (un known) date) unknown) (unknown) (no (unknown) (unknown) No Known Drug (units ( unknown) date) Allergies Allergy unknown) (Unverified 06/28/22 18:01) (unknown) (no (unknown) (unknown) Orders (units (unkno wn) date) unknown) (unknown) (no (unknown) (unknown) Orders: (units (unkno wn) date) unknown) (unknown) (no (unknown) (unknown) Oxygen Delivery (units (unknown) date) Method room air unknown) (unknown) (no (unknown) (unknown) PFSH (units (unkno wn) date) unknown) (unknown) (no (unknown) (unknown) POC Urine Dip (units ( unknown) date) Today R30.0 - unknown) Dysuria (unknown) (no (unknown) (unknown) Patient presents (units (unknown) date) to [facility] with unknown) concerns for possible UTI x 2-3 days. Patient (unknown) (no (unknown) (unknown) Patient: (units (unkno wn) date) Larry Campa E unknown) MR#: [id number] (unknown) (no (unknown) (unknown) Position Sitting (units (unknown) date) unknown) (unknown) (no (unknown) (unknown) Pulse 65 (units (unkno wn) date) unknown) (unknown) (no (unknown) (unknown) Pulse Oximetry (units (unknown) date) (%) 97 unknown) (unknown) (no (unknown) (unknown) Pulse Source (units (u nknown) date) Monitor unknown) (unknown) (no (unknown) (unknown) Reason For Visit (units (unknown) date) unknown) (unknown) (no (unknown) (unknown) Respiration 16 (units (unknown) date) unknown) (unknown) (no (unknown) (unknown) Results (units (unkno wn) date) unknown) (unknown) (no (unknown) (unknown) Signed By: (units (unk nown) date) unknown) (unknown) (no (unknown) (unknown) Smoking Status: (units (unknown) date) Former smoker unknown) (unknown) (no (unknown) (unknown) Temp 98.0 F (units (un known) date) unknown) (unknown) (no (unknown) (unknown) Temp Source (units (un known) date) Temporal Artery unknown) Scan (unknown) (no (unknown) (unknown) This note may (units ( unknown) date) have been all or unknown) partially generated using voice recognition (unknown) (no (unknown) (unknown) Tobacco + (units (unkn own) date) Substance Use unknown) (unknown) (no (unknown) (unknown) Tobacco Status (units (unknown) date) unknown) (unknown) (no (unknown) (unknown) Urine Appearance (units (unknown) date) Hazy Last Edit by unknown) Mabel Luz RN on 06/28/22 17:47 (unknown) (no (unknown) (unknown) Urine Bilirubin (units (unknown) date) Negative Last unknown) Edit by Mabel Luz RN on 06/28/22 17:47 (unknown) (no (unknown) (unknown) Urine Blood 1+ (units (unknown) date) 25 Tao/uL Last unknown) Edit by Mabel Luz RN on 06/28/22 17:47 (unknown) (no (unknown) (unknown) Urine Color (units (un known) date) Yellow Last Edit unknown) by Mabel Luz RN on 06/28/22 17:47 (unknown) (no (unknown) (unknown) Urine Culture (units ( unknown) date) Today R30.0 - unknown) Dysuria (unknown) (no (unknown) (unknown) Urine Dipstick (units (unknown) date) unknown) (unknown) (no (unknown) (unknown) Urine Glucose (units ( unknown) date) Negative mg/dL unknown) Last Edit by Mabel Luz RN on 06/28/22 17:4 (unknown) (no (unknown) (unknown) Urine Ketones (units ( unknown) date) Negative Last unknown) Edit by Mabel Luz RN on 06/28/22 17:47 (unknown) (no (unknown) (unknown) Urine Leukocyte (units (unknown) date) Esterase 3+ 500 unknown) Marcelina/uL Last Edit by Mabel Luz RN on (unknown) (no (unknown) (unknown) Urine Nitrate (units ( unknown) date) Positive Last unknown) Edit by Mabel Luz RN on 06/28/22 17:47 (unknown) (no (unknown) (unknown) Urine Protein 1+ (units (unknown) date) 30 mg/dL Last unknown) Edit by Mabel Luz RN on 06/28/22 17:47 (unknown) (no (unknown) (unknown) Urine Specific (units (unknown) date) [place] 1.010 unknown) Last Edit by Mabel Luz RN on 06/28/22 17: (unknown) (no (unknown) (unknown) Urine (units (unkno wn) date) Urobilinogen - unknown) 0.2 mg/dL Last Edit by Mabel Luz RN on 06/28/22 (unknown) (no (unknown) (unknown) Urine pH 6.5 (units (u nknown) date) Last Edit by unknown) Mabel Luz RN on 06/28/22 17:47 (unknown) (no (unknown) (unknown) Visit Reasons: (units (unknown) date) Possible UTI unknown) (unknown) (no (unknown) (unknown) Vitals (units (unkno wn) date) unknown) (unknown) (no (unknown) (unknown) Walk In Clinic (units (unknown) date) Visit unknown) (unknown) (no (unknown) (unknown) Weight 175 lb (units ( unknown) date) unknown) (unknown) (no (unknown) (unknown) back pain, (units (unk nown) date) chills or fever. unknown) (unknown) (no (unknown) (unknown) have occurred. (units (unknown) date) If there are any unknown) questions, please contact the Medical Records (unknown) (no (unknown) (unknown) losartan 100 mg (units (unknown) date) tablet 100 mg PO unknown) DAILY 06/28/22 [History Confirmed 06/28/22] (unknown) (no (unknown) (unknown) may occur. (units (unk nown) date) Occasional unknown) wrong-word or 'sound-alike' substitutions may have (unknown) (no (unknown) (unknown) metoprolol (units (unk nown) date) succinate 25 mg unknown) tablet,extended release 24 hr 12.5 mg PO DAILY (unknown) (no (unknown) (unknown) occurred due to (units (unknown) date) the inherent unknown) limitations of voice recognition software. Please (unknown) (no (unknown) (unknown) read the note (units ( unknown) date) carefully and unknown) recognize, using context, where these substitutions (unknown) (no (unknown) (unknown) reports sx of (units ( unknown) date) frequency, unknown) trouble starting stream, and suprapubic pain. Denies (unknown) (no (unknown) (unknown) software. 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 errors Result panel 3 (unknown) (no (unknown) (unknown) (no value) (units (unk nown) date) unknown) (unknown) (no (unknown) (unknown) (1) UTI (urinary (units (unknown) date) tract infection): unknown) (unknown) (no (unknown) (unknown) 06/28/22 17:47 (units (unknown) date) unknown) (unknown) (no (unknown) (unknown) 06/28/22 1816 (units ( unknown) date) unknown) (unknown) (no (unknown) (unknown) 06/28/22 (units (unkno wn) date) [History unknown) Confirmed 06/28/22] (unknown) (no (unknown) (unknown) 06/28/22 (units (unkno wn) date) unknown) (unknown) (no (unknown) (unknown) 17:47 (units (unkno wn) date) unknown) (unknown) (no (unknown) (unknown) 18:03 (units (unkno wn) date) unknown) (unknown) (no (unknown) (unknown) [id number] (units (unkno wn) date) unknown) (unknown) (no (unknown) (unknown) 47 (units (unkno wn) date) unknown) (unknown) (no (unknown) (unknown) 7 (units (unkno wn) date) unknown) (unknown) (no (unknown) (unknown) 87-year-old male (units (unknown) date) presents to the unknown) walk-in clinic with complaints of urinary (unknown) (no (unknown) (unknown) 87-year-old male (units (unknown) date) with suspected unknown) UTI. Point of care urine dip was consistent (unknown) (no (unknown) (unknown) Accompanied by: (units (unknown) date) unknown) (unknown) (no (unknown) (unknown) Age/Sex: 87 / M (units (unknown) date) Date of Service: unknown) (unknown) (no (unknown) (unknown) Allergies (units (unkn own) date) unknown) (unknown) (no (unknown) (unknown) [facility] [facility] (units (unknown) date) Medicine unknown) (unknown) (no (unknown) (unknown) [place], [place] (units ( unknown) date) [id number] unknown) (unknown) (no (unknown) (unknown) Assessment + (units (u nknown) date) Plan unknown) (unknown) (no (unknown) (unknown) Attending Dr: (units ( unknown) date) 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 (unknown) (no (unknown) (unknown) CARDIOVASCULAR: (units (unknown) date) Regular rate and unknown) rhythm without murmurs, peripheral pulses (unknown) (no (unknown) (unknown) Chief Complaint (units (unknown) date) unknown) (unknown) (no (unknown) (unknown) Chief Complaint: (units (unknown) date) Urinary frequency unknown) (unknown) (no (unknown) (unknown) Confirmed (units (unkn own) date) 06/28/22] unknown) (unknown) (no (unknown) (unknown) : 1935 (units (unknown) date) Acct:[id number] unknown) (unknown) (no (unknown) (unknown) Details: (units (unkno wn) date) unknown) (unknown) (no (unknown) (unknown) Documented By: (units (unknown) date) Randall Reynoso 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 (unknown) (no (unknown) (unknown) Exam Narrative (units (unknown) date) unknown) (unknown) (no (unknown) (unknown) Exam Narrative: (units (unknown) date) unknown) (unknown) (no (unknown) (unknown) Exam (units (unkno wn) date) unknown) (unknown) (no (unknown) (unknown) GASTROINTESTINAL (units (unknown) date) : Abdomen soft, unknown) non-tender, nondistended without guarding or (unknown) (no (unknown) (unknown) GASTROINTESTINAL (units (unknown) date) : Denies nausea, unknown) vomiting, diarrhea, constipation. Endorses (unknown) (no (unknown) (unknown) GENERAL: Denies (units (unknown) date) chills, fatigue, unknown) fever, sweats. (unknown) (no (unknown) (unknown) GENERAL: This is (units (unknown) date) a well-nourished, unknown) well-developed patient, in no acute distress. (unknown) (no (unknown) (unknown) : Denies (units (unk nown) date) dysuria, unknown) incontinence, hematuria, urinary retention, flank pain. (unknown) (no (unknown) (unknown) HEAD: (units (unkno wn) date) Atraumatic. unknown) Normocephalic. (unknown) (no (unknown) (unknown) HPI (units (unkno wn) date) unknown) (unknown) (no (unknown) (unknown) Height 170.18 cm (units (unknown) date) unknown) (unknown) (no (unknown) (unknown) Intake Note: (units (u nknown) date) unknown) (unknown) (no (unknown) (unknown) Intake performed (units (unknown) date) by: Mabel Luz unknown) (unknown) (no (unknown) (unknown) Intake (units (unkno wn) date) unknown) (unknown) (no (unknown) (unknown) Intake- Clincial (units (unknown) date) Staff unknown) (unknown) (no (unknown) (unknown) Loc: [facility] (units (unkno wn) date) unknown) (unknown) (no (unknown) (unknown) MSK: Denies (units (un known) date) weakness, joint unknown) pain, or bony pain. (unknown) (no (unknown) (unknown) Medications (units (un known) date) unknown) (unknown) (no (unknown) (unknown) Medications: (units (u nknown) date) unknown) (unknown) (no (unknown) (unknown) NEURO: A+O x 3. (units (unknown) date) unknown) (unknown) (no (unknown) (unknown) NEUROLOGIC: (units (un known) date) Denies weakness, unknown) dizziness, headache, numbness, confusion. (unknown) (no (unknown) (unknown) Narrative: See (units (unknown) date) HPI. unknown) (unknown) (no (unknown) (unknown) New (units (unkno wn) date) unknown) (unknown) (no (unknown) (unknown) No Known Drug (units ( unknown) date) Allergies Allergy unknown) (Unverified 06/28/22 18:01) (unknown) (no (unknown) (unknown) Orders (units (unkno wn) date) unknown) (unknown) (no (unknown) (unknown) Orders: (units (unkno wn) date) unknown) (unknown) (no (unknown) (unknown) Oxygen Delivery (units (unknown) date) Method room air unknown) (unknown) (no (unknown) (unknown) PFSH (units (unkno wn) date) unknown) (unknown) (no (unknown) (unknown) POC Urine Dip (units ( unknown) date) Today R30.0 - unknown) Dysuria (unknown) (no (unknown) (unknown) Patient presents (units (unknown) date) to [facility] with unknown) concerns for possible UTI x 2-3 days. Patient (unknown) (no (unknown) (unknown) Patient: (units (unkno wn) date) Larry Campa E unknown) MR#: [id number] (unknown) (no (unknown) (unknown) Plan (units (unkno wn) date) unknown) (unknown) (no (unknown) (unknown) Position Sitting (units (unknown) date) unknown) (unknown) (no (unknown) (unknown) Pulse 65 (units (unkno wn) date) unknown) (unknown) (no (unknown) (unknown) Pulse Oximetry (units (unknown) date) (%) 97 unknown) (unknown) (no (unknown) (unknown) Pulse Source (units (u nknown) date) Monitor unknown) (unknown) (no (unknown) (unknown) Qualifiers: (units (un known) date) unknown) (unknown) (no (unknown) (unknown) RESPIRATORY: (units (u nknown) date) Breath sounds unknown) equal and clear bilaterally. No wheezes, rales, or (unknown) (no (unknown) (unknown) RESPIRATORY: (units (u nknown) date) Denies dyspnea, unknown) cough, wheezing, sputum. (unknown) (no (unknown) (unknown) ROS Narrative (units ( unknown) date) unknown) (unknown) (no (unknown) (unknown) ROS Narrative: (units (unknown) date) unknown) (unknown) (no (unknown) (unknown) ROS (units (unkno wn) date) unknown) (unknown) (no (unknown) (unknown) Reason For Visit (units (unknown) date) unknown) (unknown) (no (unknown) (unknown) Respiration 16 (units (unknown) date) unknown) (unknown) (no (unknown) (unknown) Results (units (unkno wn) date) unknown) (unknown) (no (unknown) (unknown) SKIN: Denies (units (u nknown) date) rash, skin unknown) lesions, or pruritis. (unknown) (no (unknown) (unknown) SKIN: Warm, dry, (units (unknown) date) no rashes or unknown) lesions noted. (unknown) (no (unknown) (unknown) Signed By: (units (unk nown) date) <Electronically unknown) signed by Randall Reynoso> (unknown) (no (unknown) (unknown) Signed (units (unkno wn) date) unknown) (unknown) (no (unknown) (unknown) Smoking Status: (units (unknown) date) Former smoker unknown) (unknown) (no (unknown) (unknown) TURP. Will treat (units (unknown) date) with unknown) ciprofloxacin. First dose given in clinic due to (unknown) (no (unknown) (unknown) Temp 98.0 F (units (un known) date) unknown) (unknown) (no (unknown) (unknown) Temp Source (units (un known) date) Temporal Artery unknown) Scan (unknown) (no (unknown) (unknown) This note may (units ( unknown) date) have been all or unknown) partially generated using voice recognition (unknown) (no (unknown) (unknown) Tobacco + (units (unkn own) date) Substance Use unknown) (unknown) (no (unknown) (unknown) Tobacco Status (units (unknown) date) unknown) (unknown) (no (unknown) (unknown) Urinary tract (units ( unknown) date) infection type: unknown) acute cystitis Hematuria presence: with (unknown) (no (unknown) (unknown) Urine Appearance (units (unknown) date) Hazy Last Edit by unknown) Mabel Luz RN on 06/28/22 17:47 (unknown) (no (unknown) (unknown) Urine Bilirubin (units (unknown) date) Negative Last unknown) Edit by Mabel Luz RN on 06/28/22 17:47 (unknown) (no (unknown) (unknown) Urine Blood 1+ (units (unknown) date) 25 Tao/uL Last unknown) Edit by Mabel Luz RN on 06/28/22 17:47 (unknown) (no (unknown) (unknown) Urine Color (units (un known) date) Yellow Last Edit unknown) by Mabel Luz RN on 06/28/22 17:47 (unknown) (no (unknown) (unknown) Urine Culture (units ( unknown) date) Today R30.0 - unknown) Dysuria (unknown) (no (unknown) (unknown) Urine Dipstick (units (unknown) date) unknown) (unknown) (no (unknown) (unknown) Urine Glucose (units ( unknown) date) Negative mg/dL unknown) Last Edit by Mabel Luz RN on 06/28/22 17:4 (unknown) (no (unknown) (unknown) Urine Ketones (units ( unknown) date) Negative Last unknown) Edit by Mabel Luz RN on 06/28/22 17:47 (unknown) (no (unknown) (unknown) Urine Leukocyte (units (unknown) date) Esterase 3+ 500 unknown) Marcelina/uL Last Edit by Mabel Luz RN on (unknown) (no (unknown) (unknown) Urine Nitrate (units ( unknown) date) Positive Last unknown) Edit by Mabel Luz RN on 06/28/22 17:47 (unknown) (no (unknown) (unknown) Urine Protein 1+ (units (unknown) date) 30 mg/dL Last unknown) Edit by Mabel Luz RN on 06/28/22 17:47 (unknown) (no (unknown) (unknown) Urine Specific (units (unknown) date) [place] 1.010 unknown) Last Edit by Mabel Luz RN on 06/28/22 17: (unknown) (no (unknown) (unknown) Urine (units (unkno wn) date) Urobilinogen - unknown) 0.2 mg/dL Last Edit by Mabel Luz RN on 06/28/22 (unknown) (no (unknown) (unknown) Urine pH 6.5 (units (u nknown) date) Last Edit by unknown) Mabel Luz RN on 06/28/22 17:47 (unknown) (no (unknown) (unknown) Visit Reasons: (units (unknown) date) Possible UTI unknown) (unknown) (no (unknown) (unknown) Vitals (units (unkno wn) date) unknown) (unknown) (no (unknown) (unknown) Walk In Clinic (units (unknown) date) Visit unknown) (unknown) (no (unknown) (unknown) Weight 79.379 kg (units (unknown) date) unknown) (unknown) (no (unknown) (unknown) at (units (unkno wn) date) . unknown) (unknown) (no (unknown) (unknown) back pain, (units (unk nown) date) chills or fever. unknown) (unknown) (no (unknown) (unknown) changes. (units (unkno wn) date) Discussed unknown) worsening symptoms, such as inability to void or worsening (unknown) (no (unknown) (unknown) ciprofloxacin (units ( unknown) date) HCl 500 mg PO BID unknown) 5 days 10 tabs 0RF (unknown) (no (unknown) (unknown) ciprofloxacin (units ( unknown) date) HCl 500 mg tablet unknown) 500 mg PO BID 5 days #10 tabs 06/28/22 [Rx (unknown) (no (unknown) (unknown) due to the (units (unk nown) date) inherent unknown) limitations of voice recognition software. Please read the (unknown) (no (unknown) (unknown) frequency, (units (unk nown) date) urgency and unknown) trouble starting urinating x2 days. Patient reports a (unknown) (no (unknown) (unknown) hematuria (units (unkn own) date) Qualified unknown) Code(s): N30.01 - Acute cystitis with hematuria (unknown) (no (unknown) (unknown) history of (units (unk nown) date) prostate TURP in unknown) the past. (unknown) (no (unknown) (unknown) intact, cap (units (un known) date) refill <2 sec. unknown) (unknown) (no (unknown) (unknown) losartan 100 mg (units (unknown) date) tablet 100 mg PO unknown) DAILY 06/28/22 [History Confirmed 06/28/22] (unknown) (no (unknown) (unknown) metoprolol (units (unk nown) date) succinate 25 mg unknown) tablet,extended release 24 hr 12.5 mg PO DAILY (unknown) (no (unknown) (unknown) note carefully (units (unknown) date) and recognize, unknown) using context, where these substitutions have (unknown) (no (unknown) (unknown) occurred. If (units (u nknown) date) there are any unknown) questions, please contact the Medical Records Dept (unknown) (no (unknown) (unknown) pain, that would (units (unknown) date) necessitate a unknown) visit to emergency department. Patient and (unknown) (no (unknown) (unknown) pharmacy already (units (unknown) date) being closed. unknown) Informed patient that we would send off a urine (unknown) (no (unknown) (unknown) rebound. Mild (units ( unknown) date) suprapubic pain. unknown) No CVA tenderness. (unknown) (no (unknown) (unknown) reports sx of (units ( unknown) date) frequency, unknown) trouble starting stream, and suprapubic pain. Denies (unknown) (no (unknown) (unknown) rhonchi. No (units (un known) date) cough. No unknown) increased respiratory effort. No accessory muscle use. (unknown) (no (unknown) (unknown) sample for (units (unk nown) date) culture, contact unknown) him with the results, and make any necessary (unknown) (no (unknown) (unknown) software. (units (unkno wn) date) Although every unknown) effort is made to edit content, [employer] service technician errors ma (unknown) (no (unknown) (unknown) spouse (units (unkno wn) date) verbalized unknown) understanding and were agreeable with course of action. (unknown) (no (unknown) (unknown) suprapubic (units (unk nown) date) discomfort. unknown) (unknown) (no (unknown) (unknown) with UTI, (units (unkn own) date) positive blood, unknown) leuks and nitrates. Patient with history of prostate (unknown) (no (unknown) (unknown) y occur. (units (unkno wn) date) Occasional unknown) wrong-word or 'sound-alike' substitutions may have occurred Result panel 4 (unknown) (no (unknown) (unknown) >100,000 cfu/ml (unkno wn) date) (unknown) (no (unknown) (unknown) GNBGram negative (units (unknown) date) bacilli unknown) (unknown) (no (unknown) (unknown) Identification (units (unknown) date) and Sensitivity to unknown) Follow Result panel 5 (unknown) (no (unknown) (unknown) >100,000 cfu/ml (unkno wn) date) (unknown) (no (unknown) (unknown) GNBGram negative (units (unknown) date) bacilli unknown) (unknown) (no (unknown) (unknown) Identification (units (unknown) date) and Sensitivity to unknown) Follow Result panel 6 (unknown) (no (unknown) (unknown) >100,000 cfu/ml (unkno wn) date) (unknown) (no (unknown) (unknown) >=32 (units (unkno wn) date) unknown) (unknown) (no (unknown) (unknown) >=4 (units (unkno wn) date) unknown) (unknown) (no (unknown) (unknown) <=0.25 (units (unkno wn) date) unknown) (unknown) (no (unknown) (unknown) <=0.5 (units (unkno wn) date) unknown) (unknown) (no (unknown) (unknown) <=1 (units (unkno wn) date) unknown) (unknown) (no (unknown) (unknown) <=16 (units (unkno wn) date) unknown) (unknown) (no (unknown) (unknown) <=20 (units (unkno wn) date) unknown) (unknown) (no (unknown) (unknown) <=4 (units (unkno wn) date) unknown) (unknown) (no (unknown) (unknown) 4 (units (unkno wn) date) unknown) (unknown) (no (unknown) (unknown) 8 (units (unkno wn) date) unknown) (unknown) (no (unknown) (unknown) ESCCOLEscherichia (units (unknown) date) coli unknown) (unknown) (no (unknown) (unknown) No Further Workup (units (unknown) date) unknown) Social History date description facility 2022-06-28 00:00 Ex-smoker ([facility] Vital Signs date measurement value units 2022-06-28 00:00 BMI 27.3 kg/m2 2022-06-28 00:00 BP_diastolic 89 mmHg 2022-06-28 00:00 BP_systolic 140 mmHg 2022-06-28 00:00 heart_rate 65 /min 2022-06-28 00:00 height_metric 170.18 cm 2022-06-28 00:00 height_standard 67 in 2022-06-28 00:00 o2_saturation 97 % 2022-06-28 00:00 respiration_rate 16 /min 2022-06-28 00:00 temperature_metric 36.67 C 2022-06-28 00:00 temperature_standard 98 F 2022-06-28 00:00 weight_metric 79.37 kg 2022-06-28 00:00 weight_standard 174.98 lb
[2022-07-02 23:01] LABS: BILIRUBIN,URINE NEGATIVE (NEGATIVE); GLUCOSE, URINE (UA) NEGATIVE (NEGATIVE); KETONES,URINE (UA) NEGATIVE (NEGATIVE); LEUKOCYTE ESTERASE, URINE NEGATIVE (NEGATIVE); NITRITE,URINE POSITIVE (NEGATIVE); OCCULT BLOOD,URINE NEGATIVE (NEGATIVE); PROTEIN,URINE 30 mg/dL (NEGATIVE); UROBILINOGEN,URINE 0.2 (NORMAL) E.U./dL (NORMAL)
[2022-07-02 23:08] LABS: BACTERIA,URINE Moderate /HPF (None Seen); CLARITY,URINE CLEAR (CLEAR); RBC,URINE 0-5 /HPF (0-5); SQUAMOUS EPITHELIAL CELL,UR NONE SEEN (<= Few)
--- NOTE | 2022-07-02 23:18 | ED Physician Documentation ---
PD HPI MALE - Stated complaint Stated Complaint: MALE - Chief complaint Chief Complaint: General - History obtained from History obtained from: Patient - Additional information Additional information: Patient is an 87-year-old male presenting for evaluation of difficulty urinating for the past several hours. He reports currently being on an antibiotic for urinary tract infection. He is unsure of the name of the antibiotic but on review of recently filled medications it seems that he was on ciprofloxacin but then was changed to Macrobid yesterday.Patient states for the last few hours he has been able able to pee a few drops. He denies fever, chest pain, difficulty breathing, vomiting, hematuria. Review of Systems Constitutional: denies: Fever Cardiac: denies: Chest pain / pressure Respiratory: denies: Dyspnea GI: reports: Abdominal Pain (Suprapubic) : reports: Unable to Void Musculoskeletal: denies: Back pain PD PAST MEDICAL HISTORY - Past Medical History Past Medical History: Yes Cardiovascular: Hypertension Respiratory: COPD Neuro: None Endocrine/Autoimmune: None GI: GERD, Ulcers, Colon polyps, Hepatitis : Benign prostate hypertrophy HEENT: Chronic hearing loss Psych: None Musculoskeletal: Osteoarthritis Derm: None - Past Surgical History Past Surgical History: Yes General: EGD, Colonoscopy HEENT: Cataracts - Present Medications Home Medications: Ambulatory Orders Medication Instructions Recorded Confirmed Multivitamin [Multivitamins] 1 each PO DAILY 01/21/13 03/25/22 Greenwood-3 Fatty Acids [Fish Oil] 500 mg PO DAILY 01/21/13 03/25/22 Vit C/Jayce AC/Lut/Copper/Znox 1 each PO DAILY 01/21/13 03/25/22 [Preservision Lutein Softgel] Losartan [Cozaar] 100 mg PO DAILY 01/24/13 03/25/22 Amlodipine Besylate 1 tab PO DAILY 02/17/20 03/25/22 Tamsulosin [Flomax] 0.4 mg PO DAILY #20 capsule 02/17/20 03/25/22 Albuterol Sulf [Ventolin Hfa 2 puffs PO QID PRN 03/25/22 03/25/22 Inhaler] Cholecalciferol [Vitamin D3] 1 tab PO DAILY 03/25/22 03/25/22 Finasteride [Proscar] 1 tab PO DAILY 03/25/22 03/25/22 Fluticasone Propion/Salmeterol 1 puffs PO BID 03/25/22 03/25/22 [Fluticasone-Salmeterol 250-50] Metoprolol Succinate [Toprol Xl] 1 tab PO DAILY 03/25/22 03/25/22 Ferric Citrate [Auryxia] 210 mg PO DAILY #30 tablet 03/27/22 - Allergies Allergies/Adverse Reactions: Allergies Allergy/AdvReac Type Severity Reaction Status Date / Time No Known Drug Allergies Allergy Verified 07/02/22 22:29 - Social History Does the pt smoke?: No Smoking Status: Never smoker Does the pt drink ETOH?: Yes Does the pt have substance abuse?: No - Immunizations Immunizations are current?: Yes - POLST Patient has POLST: No PD ED PE NORMAL - General General: Alert and oriented X 3, No acute distress, Well developed/nourished - HEENT HEENT: Atraumatic - Neck Neck: Supple, no meningeal sign - Cardiac Cardiac: RRR, No murmur - Respiratory Respiratory: No respiratory distress, Clear bilaterally - Abdomen Abdomen: Soft, Non distended, Other (Suprapubic tenderness, resolved once Justin catheter was placed and bladder drained) - Derm Derm: Warm and dry Results - Vitals Vitals: Vital Signs - 24 hr 07/02/22 07/02/22 22:27 22:31 Temperature 36.8 C Heart Rate 95 Respiratory 16 16 Rate Blood Pressure 172/95 H O2 Saturation 98 Oxygen O2 Source Room air - Labs Labs: Laboratory Tests 07/02/22 22:40 Urine Color YELLOW Urine Clarity CLEAR Urine pH 6.0 Ur Specific [place] 1.020 Urine Protein 30 H Urine Glucose (UA) NEGATIVE Urine Ketones NEGATIVE Urine Occult Blood NEGATIVE Urine Nitrite POSITIVE H Urine Bilirubin NEGATIVE Urine Urobilinogen 0.2 (NORMAL) Ur Leukocyte Esterase NEGATIVE Urine RBC 0-5 Urine WBC 6-10 H Ur Squamous Epith Cells NONE SEEN Urine Bacteria Moderate H Ur Microscopic Review INDICATED Urine Culture Comments INDICATED PD Medical Decision Making - ED course Complexity details: reviewed results, re-evaluated patient ED course: Patient presenting for evaluation of difficulty urinating. His bladder scan shows greater than 500 mL of urine in the bladder. A Justin catheter was placed and patient felt Significantly better. His abdominal exam is benign. His vital signs appear stable.He is clinically well-appearing. His urine analysis was reviewed. He is already on antibiotics. Patient familiar with Justin catheters and was counseled on further follow-up for removal. Patient is also advised on concerning symptoms to return for. Departure - Departure Disposition: 01 Home, Self Care Clinical Impression: Acute urinary retention Condition: Stable Instructions: ED Retention Urinary Male Comments: Your Bladder is not emptying properly. You are holding onto a lot of urine so we placed a Justin catheter into your bladder to help continue to drain the urine.The catheter should stay in for approximately 1 week and I would recommend close follow-up with your urologist or primary care doctor. In the meantime please continue with taking the antibiotic that you were prescribed as well as Flomax. If you encounter any issues with your catheter such as it not draining, increased pain, large amounts of blood in your urine then please return to the emergency department. Discharge Date/Time: 07/02/22 23:33
== END 2022-07-02 23:33 | disposition home or self-care (01) ==
LOC: ED 22:15
DX: R33.9 Retention of urine, unspecified (principal); N39.0 Urinary tract infection, site not specified
CPT/HCPCS: 51702; 51798; 81001; 81003; 87086; 99283

== ENCOUNTER 2022-07-25 08:07 | Outpatient (CLI) | payer MEDICARE ==
[2022-07-25] MEDS ORDERED: iohexoL-300 100 ML VIAL ONE (08:17)
[2022-07-25] MEDS ORDERED: DIATRIZOATE MEGLU/DIATRIZO SOD 30 ML BOTTLE PO ONE (10:09)
[2022-07-25] MEDS ORDERED: iohexoL-300 100 ML VIAL IVP ONE (10:09)
--- NOTE | 2022-07-25 11:37 | CT Report ---
PROCEDURE: CHEST W INDICATIONS: PROSTATE CA CONTRAST:100ml omni 300 TECHNIQUE: After the administration of intravenous contrast, 1 mm axial images were acquired from the pulmonary apices through the posterior costophrenic angles. Axial 5 mm soft tissue kernel reconstructions were performed as well as 8 mm axial MIP and coronal and sagittal 5 mm reformations. For radiation dose reduction, the following was used: automated exposure control, adjustment of mA and/or kV according to patient size. COMPARISON: CT abdomen pelvis same day, 02/17/2020. FINDINGS: Image quality: Excellent. Lungs and pleura: Mild peripheral reticular thickening is unchanged. Subtle reticular thickening in t he right upper lobe, (3/52). Mild atelectasis at the lingula and right middle lobe. No mass or signif icant pulmonary nodules. A few punctate pulmonary nodules. Some of these appear calcified. No pleural effusions or pneumothorax. Central and peripheral airways are patent and normal in caliber. Mediastinum: Heart size is normal. Coronary artery calcifications. No pericardial effusion. Shotty m ediastinal lymph nodes. Thoracic aorta and central pulmonary arteries are normal in size. Esophagus is normal in caliber. Moderate hiatal hernia. Bones and chest wall: Mild scoliosis. Innumerable sclerotic/groundglass osseous lesions. No axillary or supraclavicular adenopathy by size criteria. The thyroid is normal in size and there are no incid ental findings. Abdomen: Please see separately dictated CT abdomen pelvis. IMPRESSION: 1. No significant pulmonary nodules. 2. Extensive sclerotic osseous metastatic disease. 3. Shotty mediastinal lymph nodes. 4. Moderate hiatal hernia. Reviewed by: Reese Tolbert MD on 07/25/2022 11:36 AM PDT Approved by: Reese Tolbert MD on 07/25/2022 11:36 AM PDT Station ID: [id number]
--- NOTE | 2022-07-25 11:57 | CT Report ---
PROCEDURE: ABDOMEN/PELVIS W INDICATIONS: PROSTATE CA CONTRAST: 100ml omni 300 TECHNIQUE: After the administration of oral and intravenous contrast, 5 mm thick sections acquired from the diap hragms to the symphysis. 5 mm thick coronal and sagittal reformats were acquired. For radiation dos e reduction, the following was used: automated exposure control, adjustment of mA and/or kV accordin g to patient size. COMPARISON: Same day CT chest. Lumbar spine radiographs 06/11/2022. CT abdomen pelvis 02/17/2020. FINDINGS: Image quality: Excellent. ABDOMEN: Lung bases: Please see separately dictated same-day CT chest. Moderate hiatal hernia. Solid organs: Left lobe of the liver is atrophic as before. Small cyst in segment 4A. Gallbladder is unremarkable. Biliary system is non dilated. Pancreas enhances normally. No splenomegaly. No adre nal nodules. Kidneys demonstrate normal size and enhancement, without hydronephrosis. Bilateral low- density renal cysts are similar in size. Peritoneum and bowel: Rectum is distended with stool. There is increased stool in the colon. Cecum is displaced to the right upper quadrant. The appendix is not dilated. No ascites. No pneumoperitoneum. Nodes and vessels: No retroperitoneal or mesenteric adenopathy by size criteria. Aorta and inferior vena cava are normal in size. Circumferential calcified metastatic plaque. Miscellaneous: No ventral hernias. PELVIS: Genitourinary: Bladder is only partially distended. Bladder wall is thickened. Justin catheter is in p lace. Prominent prostate gland. Miscellaneous: No inguinal hernias. Left pelvic sidewall node measuring 0.6 cm, (3/57). Bones: Extensive groundglass/sclerotic osseous metastases throughout the bones. Levoscoliosis. No kyrie tebral body compression fractures. IMPRESSION: 1. Extensive groundglass/sclerotic osseous metastatic disease throughout the bones. 2. Bladder wall thickening. 3. No enlarged lymph nodes identified. 4. Rectum is distended with stool. Possible fecal impaction. There is prominent stool the colon. Susp ect constipation. Reviewed by: Reese Tolbert MD on 07/25/2022 11:55 AM PDT Approved by: Reese Tolbert MD on 07/25/2022 11:55 AM PDT Station ID: [id number]
== END 2022-07-25 08:08 | disposition home or self-care (01) ==
LOC: DI 08:07
PROVIDERS: ATTEND Urology
DX: C79.51 Secondary malignant neoplasm of bone (principal); K44.9 Diaphragmatic hernia without obstruction or gangrene; C61 Malignant neoplasm of prostate
CPT/HCPCS: 71260; 74177; Q9963; Q9967

== ENCOUNTER 2022-08-12 16:10 | Outpatient (CLI) | payer MEDICARE ==
[2022-08-12 16:33] LABS: BASOPHILS # (AUTO) 0.1 10^3/uL (0.0-0.1); BASOPHILS % (AUTO) 0.5 %; EOSINOPHILS % (AUTO) 0.1 %; HCT - HEMATOCRIT 40.9 % (42.0-52.0); LYMPHOCYTES # (AUTO) 2.3 10^3/uL (1.5-3.5); LYMPHOCYTES % (AUTO) 17.6 %; MEAN CORPUSCULAR HEMOGLOBIN 30.5 pg (27.0-31.0); MEAN CORPUSCULAR HGB CONC 31.8 g/dL (32.0-36.0); MEAN PLATELET VOLUME 9.1 fL (7.4-11.4); MONOCYTES # (AUTO) 1.2 10^3/uL (0.0-1.0); MONOCYTES % (AUTO) 8.8 %; NEUTROPHILS # (AUTO) 9.5 10^3/uL (1.5-6.6); NEUTROPHILS % (AUTO) 72.1 %; PLT - PLATELET COUNT 327 10^3/uL (130-450); RED BLOOD COUNT 4.26 10^6/uL (4.70-6.10); RED CELL DISTRIBUTION WIDTH 14.3 % (12.0-15.0); WHITE BLOOD COUNT 13.1 x10^3/uL (4.8-10.8)
[2022-08-12 16:44] LABS: ALBUMIN 3.2 g/dL (3.2-5.5); ALBUMIN/GLOBULIN RATIO 0.7 (1.0-2.2); BILIRUBIN,TOTAL 1.1 mg/dL (0.2-1.0); CALCIUM 8.7 mg/dL (8.5-10.3); CREATININE 0.8 mg/dL (0.6-1.2); POTASSIUM 4.8 mmol/L (3.5-5.0); TOTAL PROTEIN 7.8 g/dL (6.7-8.2)
--- NOTE | 2022-08-13 10:09 | XRAY Report ---
PROCEDURE: Chest 2 View X-Ray INDICATIONS: PRODUCTIVE COUGH,COPD,BRONCHIECTASIS TECHNIQUE: 2 views of the chest were acquired. COMPARISON: CT 07/25/2022. FINDINGS: Surgical changes and devices: None. Lungs and pleura: Small left pleural effusion. Patchy right midlung zone airspace opacity. Mediastinum: Mediastinal contours appear normal. Heart size is normal. Bones and chest wall: No suspicious bony lesions. Overlying soft tissues appear unremarkable. [place] ntration of the right hemidiaphragm. Colonic interposition between the liver and hemidiaphragm. IMPRESSION: Small left pleural effusion. Patchy right midlung zone airspace opacity, suggestive of mild infection. 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 Colonic interposition between the liver and hemidiaphragm, which can be symptomatically and certain p opulations. Reviewed by: Roosevelt Rodriguez on 08/13/2022 8:50 AM PDT Approved by: Roosevelt Rodriguez on 08/13/2022 8:50 AM PDT Station ID: [id number]
== END 2022-08-12 16:11 | disposition home or self-care (01) ==
LOC: DI 16:10
PROVIDERS: ATTEND Family Medicine
DX: R05.9 Cough, unspecified (principal); J47.9 Bronchiectasis, uncomplicated; J90 Pleural effusion, not elsewhere classified; R91.8 Other nonspecific abnormal finding of lung field
CPT/HCPCS: 36415; 80053; 83880; 85025

== ENCOUNTER 2023-02-07 07:59 | Outpatient (CLI) | payer MEDICARE | END 2023-02-07 23:59 | disposition critical access hospital (66) | LOC: EMS 07:59 | DX: R04.0 Epistaxis (principal); U07.1 COVID-19 | CPT/HCPCS: A0425; A0429 ==